=== PATIENT | female | born 1940 | race Caucasian/White ===

== ENCOUNTER 2017-05-07 16:19 | Inpatient (IN) | payer OTHER ==
--- NOTE | 2017-05-07 16:30 | PDOC ---
Rapid Medical Evaluation Time Seen by Provider: 05/07/17 16:27 Medical Evaluation: Allergies Allergy/AdvReac Type Severity Reaction Status Date / Time No Known Allergies Allergy Verified 03/14/15 20:53 05/07/17 16:29 c/o elevated blood sugar and elevate high blood pressure with visual changes when sitting sideways. Discharge Disposition - Diagnosis Hyperglycemia - Discharge Dispostion Disposition: HOME Condition at time of disposition: Fair - Referrals - Patient Instructions - Post Discharge Activity
[2017-05-07 16:52] LABS: URINE APPEARANCE CLEAR; URINE BILIRUBIN NEGATIVE (NEGATIVE); URINE BLOOD NEGATIVE (NEGATIVE); URINE COLOR STRAW; URINE GLUCOSE (UA) 3+ (NEGATIVE); URINE KETONE NEGATIVE (NEGATIVE); URINE LEUK ESTERASE NEGATIVE (NEGATIVE); URINE NITRITE NEGATIVE (NEGATIVE); URINE PROTEIN NEGATIVE (NEGATIVE)
[2017-05-07 16:56] LABS: BASO % 0.5 % (0-2.0); HEMOGLOBIN 11.5 GM/dL (10.7-15.3); LYMPH % 17.1 % (8-40); MCHC 30.1 g/dl (32.0-36.0); MEAN CELL VOLUME 66.5 fl (80-96); MONO % 13.7 % (3.8-10.2); NEUT % 67.7 % (42.8-82.8); RBC 5.72 M/mm3 (3.60-5.2); RDW 16.3 % (11.6-15.6); WHITE BLOOD COUNT 6.7 K/mm3 (4.0-10.0)
[2017-05-07 17:02] LABS: ADD RBC MORPHOLOGY YES
--- NOTE | 2017-05-07 17:03 | PDOC ---
Attending Attestation - Resident Resident Name: Lia Haney - HPI HPI: 05/07/17 19:40 Pt presents to the ED complaining of visual floaters and elevated FS at home. Denies other complaints. Admits to non compliance with DM medications. - Physicial Exam PE: 05/07/17 19:41 Agree with resident exam. Patient is well appearing and in no acute distress. Liungs are clear. Heart is regular rate and rhythm. - Medical Decision Making 05/07/17 19:42 Pt presents to the ED with severe hyperglycemia without DKA. Also has renal failure that appears to be acute. Will treat with IV insulin and IV hydration. given severe hyperglycemia and renal failure, will admit to medicine for glycemic control.
[2017-05-07 17:25] LABS: ALBUMIN 3.5 g/dl (3.4-5.0); ANION GAP 8 (8-16); BILIRUBIN,TOTAL 0.3 mg/dL (0.2-1.0); BLOOD UREA NITROGEN 33 mg/dL (7-18); CALCIUM 8.5 mg/dL (8.5-10.1); CHLORIDE 96 mmol/L (98-107); CO2 26 mmol/L (21-32); CREATININE 1.7 mg/dL (0.55-1.02); POTASSIUM 4.6 mmol/L (3.5-5.1); SGOT/AST 25 U/L (15-37); SODIUM 130 mmol/L (136-145); TOT PROT 7.4 g/dl (6.4-8.2)
--- NOTE | 2017-05-07 17:31 | PDOC ---
History of Present Illness - General Chief Complaint: Difficulty with Vision Stated Complaint: BLOOD PRESSURE Time Seen by Provider: 05/07/17 16:27 - History of Present Illness Initial Comments: 05/07/17 18:30 76 y.o. female with a PMH of IDDM, HTN who presents with a three day h/o elevated BS (400's-600's). Patient notes a h/o non-adherence to her insulin medication regimen and denies any associated nausea/vomiting, abdominal pain. Patient does c/o R sided visual flashing lights without any blurry vision, eye pain, floaters or increased lacrimation. Patient denies any fevers/chills, chest pain, shortness of breath, recent travel or sick contacts. Past History - Past Medical History Allergies/Adverse Reactions: Allergies Allergy/AdvReac Type Severity Reaction Status Date / Time No Known Allergies Allergy Verified 05/07/17 16:33 Home Medications: Ambulatory Orders Alendronate Na [Fosamax (Weekly)] 70 mg PO Q7D 07/03/14 Amlodipine Besylate/Benazepril [Lotrel 10-20 mg Capsule] 1 each PO DAILY Clopidogrel Bisulfate [Clopidogrel] 75 mg PO DAILY 07/03/14 Gabapentin [Neurontin] 600 mg PO BID 07/03/14 Glipizide 10 mg PO BID 07/03/14 Insulin Glargine,Hum.rec.anlog [Lantus Solostar PEN -] 30 units SQ HS 07/03/14 Nitroglycerin Patch [Nitro-Dur Patch -] 0.1 mg TD DAILY 07/03/14 Pioglitazone HCl 45 mg PO DAILY 07/03/14 Rosuvastatin Calcium [Crestor] 20 mg PO DAILY 07/03/14 Sitagliptin Phosphate [Januvia] 100 mg PO DAILY 07/03/14 metFORMIN HCL [Glucophage -] 500 mg PO BID 07/03/14 Insulin (Novolog) [Novolog Flexpen -] See Protocol SQ ACHS #1 pen 07/10/14 Furosemide [Lasix -] 20 mg PO DAILY 03/14/15 Metoprolol Succinate [Toprol Xl] 50 mg PO DAILY 03/14/15 Omeprazole [Prilosec (RX)] 40 mg PO DAILY 03/14/15 Cardiac Disorders: Yes (CAD, Stents x3) COPD: No Diabetes: Yes HTN: Yes Hypercholesterolemia: Yes - Immunization History Immunization Up to Date: Yes - Suicide/Smoking/Psychosocial Hx Smoking History: Never smoked Have you smoked in the past 12 months: No Information on smoking cessation initiated: No Hx Alcohol Use: No Drug/Substance Use Hx: No Substance Use Type: None Review of Systems - Review of Systems Constitutional: No: Chills, Fever HEENTM: Yes: Other (flashing lights). No: Eye Pain, Blurred Vision Respiratory: No: Shortness of Breath Cardiac (ROS): No: Chest Pain ABD/GI: No: Constipated, Diarrhea : No: Burning, Dysuria Neurological: No: Headache, Numbness Psychiatric: No: Anxiety, Depression All Other Systems: Reviewed and Negative *Physical Exam - Vital Signs Last Vital Signs Temp Pulse Resp BP Pulse Ox 97.8 F 67 18 185/77 100 05/07/17 16:30 05/07/17 16:30 05/07/17 16:30 05/07/17 16:30 05/07/17 16:30 - Physical Exam General Appearance: Yes: Nourished, Appropriately Dressed HEENT: positive: EOMI, NUVIA, Other (Visual acuits 20/25 B/L) Neck: positive: Trachea midline, Supple Respiratory/Chest: positive: Lungs Clear Cardiovascular: positive: S1, S2 Gastrointestinal/Abdominal: positive: Soft. negative: Tenderness, Hernia, Mass Extremity: positive: Normal Capillary Refill, Normal Inspection Integumentary: positive: Normal Color, Dry, Warm Neurologic: positive: Fully Oriented, Alert ED Treatment Course - LABORATORY CBC & Chemistry Diagram: 05/07/17 16:36 05/07/17 16:36 - ADDITIONAL ORDERS Additional order review: Laboratory Results 05/07/17 16:43 Urine Color Straw Urine Appearance Clear Urine pH 6.0 D Ur Specific [place] 1.022 Urine Protein Negative Urine Glucose (UA) 3+ H Urine Ketones Negative Urine Blood Negative Urine Nitrite Negative Urine Bilirubin Negative Urine Urobilinogen 2.0 H Ur Leukocyte Esterase Negative 05/07/17 16:36 RBC 5.72 H MCV 66.5 L MCHC 30.1 L RDW 16.3 H Neutrophils % 67.7 Lymphocytes % 17.1 Monocytes % 13.7 H Eosinophils % 1.0 Basophils % 0.5 Medical Decision Making - Medical Decision Making 05/07/17 21:35 76 y.o. female who presents with hyperglycemia. BS 700's @ presentation. K+ normal. Will administer IVNS + 10 units insulin with repeat fingerstick. Case d/w Dr. Garcia - agrees with inpatient admission as well as non-emergent opthamology consult (20/25 visual acuity B/L). Patient and patient's family @ bedside counseled on plan of care as well as importance of adherence to insulin medication regimen. Patient resting comfortably. Will continue to monitor while in ED. Patient signed out Dr. Blackburn (Resident) and Dr. Kennedy (Attending). *DC/Admit/Observation/Transfer Diagnosis at time of Disposition: Hyperglycemia - Discharge Dispostion Condition at time of disposition: Fair Admit: Yes - Referrals - Patient Instructions - Post Discharge Activity
[2017-05-07 17:33] LABS: ALK PHOS 105 U/L (45-117); SGPT/ALT 16 U/L (12-78)
[2017-05-07 17:48] LABS: GLUCOSE,RANDOM 701 mg/dL (74-106)
[2017-05-07 17:57] LABS: VENOUS PC02 44.4 mmHg (38-52); VENOUS PH 7.38 (7.32-7.42); VENOUS PO2 39.5 mmHg (28-48)
[2017-05-07] MEDS ORDERED: SODIUM CHLORIDE 0.9% 500 ML INFUS.BAG IV ONE (18:17)
[2017-05-07] MEDS ORDERED: INSULIN REGULAR HUMAN 100 UNITS/ML *VIAL IVPUSH ONE (18:44)
[2017-05-07] MEDS ORDERED: INSULIN REGULAR 100 UNITS in SODIUM CHLORIDE 99 ML IVPB SCH (18:45)
[2017-05-07] MEDS ORDERED: INSULIN REGULAR HUMAN 100 UNITS/ML *VIAL ONE (18:55)
--- NOTE | 2017-05-07 20:37 | HP ---
Admitting History and Physical - Primary Care Physician PCP: Jamia Garcia - Admission History of Present Illness: Pt presents to the ED with severe hyperglycemia without DKA. Also has renal failure that appears to be acute. Will treat with IV insulin and IV hydration. given severe hyperglycemia and renal failure, will admit to medicine for glycemic control. - Past Medical History Cardiovascular: Yes: CAD, HTN Musculoskeletal: Yes: Osteoarthritis Endocrine: Yes: Diabetes Mellitus - Past Surgical History Past Surgical History: Yes: Stent (Cardiac Stents x3) - Smoking History Smoking history: Never smoked Have you smoked in the past 12 months: No - Alcohol/Substance Use Hx Alcohol Use: No History of Substance Use: reports: None - Social History ADL: Independent History of Recent Travel: No Home Medications - Allergies Allergies/Adverse Reactions: Allergies Allergy/AdvReac Type Severity Reaction Status Date / Time No Known Allergies Allergy Verified 05/07/17 16:33 - Home Medications Home Medications: Ambulatory Orders Alendronate Na [Fosamax (Weekly)] 70 mg PO Q7D 07/03/14 Clopidogrel Bisulfate [Clopidogrel] 75 mg PO DAILY 07/03/14 Gabapentin [Neurontin] 600 mg PO BID 07/03/14 Glipizide 10 mg PO BID 07/03/14 Nitroglycerin Patch [Nitro-Dur Patch -] 0.1 mg TD DAILY 07/03/14 Rosuvastatin Calcium [Crestor] 20 mg PO DAILY 07/03/14 Insulin (Novolog) [Novolog Flexpen -] See Protocol SQ ACHS #1 pen 07/10/14 Furosemide [Lasix -] 20 mg PO DAILY 03/14/15 Metoprolol Succinate [Toprol Xl] 50 mg PO DAILY 03/14/15 Omeprazole [Prilosec (RX)] 40 mg PO DAILY 03/14/15 Amlodipine Besylate [Norvasc -] 10 mg PO DAILY tablet 05/10/17 Insulin (Levemir) [Levemir Vial] 18 units SQ HS ml 05/10/17 Insulin Sliding Scale [Novolog Vial Sliding Scale -] 1 vial SQ TIDAC units 03/29 Lisinopril [Prinivil] 20 mg PO DAILY tablet 05/10/17 Metoprolol Succinate [Toprol XL -] 50 mg PO DAILY tab.sr.24h 05/10/17 Physical Examination Vital Signs: Vital Signs Temperature 97.8 F 05/07/17 16:30 Pulse Rate 70 05/07/17 19:01 Respiratory Rate 13 05/07/17 19:01 Blood Pressure 140/87 05/07/17 19:01 O2 Sat by Pulse Oximetry (%) 98 05/07/17 19:01 Constitutional: Yes: No Distress HENT: Yes: Atraumatic Neck: Yes: Supple Cardiovascular: Yes: Regular Rate and Rhythm Respiratory: Yes: CTA Bilaterally Gastrointestinal: Yes: Normal Bowel Sounds Extremities: Yes: WNL Edema: No Peripheral Pulses WNL: Yes Neurological: Yes: Alert Labs: CBC, BMP 05/07/17 16:36 05/07/17 16:36 Problem List - Problems (1) Coronary artery disease Assessment/Plan: on meds stable Code(s): I25.10 - ATHSCL HEART DISEASE OF [place] CORONARY ARTERY W/O ANG PCTRS (2) Diabetes mellitus Assessment/Plan: insulin and bgms hold po meds as elevated cr Code(s): E11.9 - TYPE 2 DIABETES MELLITUS WITHOUT COMPLICATIONS (3) Hyperlipidemia Assessment/Plan: on meds stable Code(s): E78.5 - HYPERLIPIDEMIA, UNSPECIFIED (4) Hypertension Assessment/Plan: on meds stable Code(s): I10 - ESSENTIAL (PRIMARY) HYPERTENSION (5) ARF (acute renal failure) Assessment/Plan: hyperglycemia dehydration will start ivf Code(s): N17.9 - ACUTE KIDNEY FAILURE, UNSPECIFIED Assessment/Plan Laboratory Tests 05/07/17 05/07/17 05/07/17 16:36 16:36 16:43 WBC 6.7 RBC 5.72 H Hgb 11.5 Hct 38.0 MCV 66.5 L MCH 20.0 L MCHC 30.1 L RDW 16.3 H Neutrophils % 67.7 Lymphocytes % 17.1 Monocytes % 13.7 H Eosinophils % 1.0 Basophils % 0.5 VBG pH POC VBG pCO2 POC VBG pO2 Mixed VBG HCO3 Sodium 130 L Potassium 4.6 Chloride 96 L Carbon Dioxide 26 Anion Gap 8 BUN 33 H Creatinine 1.7 H Creat Clearance w eGFR 29.07 Random Glucose 701 H* Calcium 8.5 Total Bilirubin 0.3 D AST 25 ALT 16 Alkaline Phosphatase 105 Total Protein 7.4 Albumin 3.5 Urine Color Straw Urine Appearance Clear Urine pH 6.0 D Ur Specific [place] 1.022 Urine Protein Negative Urine Glucose (UA) 3+ H Urine Ketones Negative Urine Blood Negative Urine Nitrite Negative Urine Bilirubin Negative Urine Urobilinogen 2.0 H Ur Leukocyte Esterase Negative 05/07/17 17:43 WBC RBC Hgb Hct MCV MCH MCHC RDW Neutrophils % Lymphocytes % Monocytes % Eosinophils % Basophils % VBG pH 7.38 POC VBG pCO2 44.4 POC VBG pO2 39.5 Mixed VBG HCO3 25.8 H Sodium Potassium Chloride Carbon Dioxide Anion Gap BUN Creatinine Creat Clearance w eGFR Random Glucose Calcium Total Bilirubin AST ALT Alkaline Phosphatase Total Protein Albumin Urine Color Urine Appearance Urine pH Ur Specific [place] Urine Protein Urine Glucose (UA) Urine Ketones Urine Blood Urine Nitrite Urine Bilirubin Urine Urobilinogen Ur Leukocyte Esterase Active Medications Generic Name Dose Route Start Last Admin Trade Name Freq PRN Reason Stop Dose Admin Acetaminophen 650 mg 05/07/17 20:45 05/07/17 21:00 Tylenol - PO 650 mg Q6H PRN Administration FEVER Amlodipine Besylate 10 mg 05/08/17 18:15 05/10/17 09:02 Norvasc - PO 10 mg DAILY [facility] Administration Clopidogrel Bisulfate 75 mg 05/08/17 18:00 05/10/17 09:02 Plavix - PO 75 mg DAILY [facility] Administration Insulin Aspart 1 vial 05/08/17 22:00 05/09/17 21:45 Novolog Vial Sliding Scale - SQ Not Given HS [facility] Protocol Insulin Aspart 1 vial 05/09/17 09:41 05/10/17 12:22 Novolog Vial Sliding Scale - SQ 2 units TIDAC [facility] Administration Protocol Insulin Detemir 18 units 05/10/17 22:00 Levemir Vial SQ HS [facility] Lisinopril 20 mg 05/08/17 18:15 05/10/17 09:03 Prinivil PO 20 mg DAILY [facility] Administration Metoprolol Succinate 50 mg 05/08/17 18:00 05/10/17 09:03 Toprol Xl - PO 50 mg DAILY [facility] Administration Pantoprazole Sodium 40 mg 05/08/17 18:00 05/10/17 09:03 Protonix - PO 40 mg DAILY [facility] Administration Rosuvastatin Calcium 20 mg 05/08/17 22:00 05/09/17 21:45 Crestor - PO 20 mg 2200 [facility] Administration
[2017-05-07] MEDS ORDERED: ACETAMINOPHEN 325 MG TABLET (FP) PO PRN (20:45)
[2017-05-07 20:56] LABS: MEAN PLT VOLUME 10.5 fl (7.5-11.1); PLATELET COUNT 151 K/MM3 (134-434)
[2017-05-07] MEDS: SODIUM CHLORIDE 1,000 ML IV SCH (20:57)
[2017-05-07 21:00] LABS: ANISOCYTOSIS 1+; OVALOCYTE 1+; PLATELET ESTIMATE ADEQUATE
[2017-05-07] MEDS: INSULIN SLIDING SCALE (NOVOLOG) 1 VIAL SQ SCH (21:53)
[2017-05-07] MEDS ORDERED: PT OWN MED DRAWER 7, Y5N ONE (22:17)
[2017-05-08 00:26] VITALS: BMI 34.2
[2017-05-08] MEDS ORDERED: PT OWN MED DRAWER 7, Y5N ONE (01:00)
[2017-05-08] MEDS: INSULIN SLIDING SCALE (NOVOLOG) 1 VIAL SQ SCH ×3 (06:44→22:36)
[2017-05-08 08:49] LABS: BASO % 1.2 % (0-2.0); EOS % 2.4 % (0-4.5); HEMATOCRIT 37.3 % (32.4-45.2); HEMOGLOBIN 11.1 GM/dL (10.7-15.3); LYMPH % 29.8 % (8-40); MCHC 29.7 g/dl (32.0-36.0); MEAN CELL VOLUME 66.4 fl (80-96); MONO % 13.1 % (3.8-10.2); NEUT % 53.5 % (42.8-82.8); PLATELET COUNT 167 K/MM3 (134-434); RBC 5.62 M/mm3 (3.60-5.2); RDW 15.7 % (11.6-15.6); WHITE BLOOD COUNT 6.3 K/mm3 (4.0-10.0)
[2017-05-08 08:53] LABS: ALBUMIN 3.2 g/dl (3.4-5.0); ALK PHOS 78 U/L (45-117); ANION GAP 9 (8-16); BILIRUBIN,TOTAL 0.4 mg/dL (0.2-1.0); BLOOD UREA NITROGEN 25 mg/dL (7-18); CALCIUM 8.2 mg/dL (8.5-10.1); CHLORIDE 105 mmol/L (98-107); CO2 26 mmol/L (21-32); CREATININE 1.1 mg/dL (0.55-1.02); GLUCOSE,RANDOM 189 mg/dL (74-106); POTASSIUM 4.3 mmol/L (3.5-5.1); SGOT/AST 28 U/L (15-37); SGPT/ALT 15 U/L (12-78); SODIUM 140 mmol/L (136-145); TOT PROT 6.6 g/dl (6.4-8.2)
[2017-05-08 08:54] LABS: MCH 19.7 pg (25.7-33.7)
[2017-05-08 09:52] LABS: PLATELET ESTIMATE ADEQUATE
[2017-05-08] MEDS: SODIUM CHLORIDE 1,000 ML IV SCH ×2 (10:02→22:17)
[2017-05-08] MEDS ORDERED: INSULIN (NOVOLOG) ASPART 100 UNITS/ML 10ML VIAL ONE (12:16)
--- NOTE | 2017-05-08 14:27 | CONSULT ---
Consult Consult Specialty:: Endocrinology Referred by:: Dr Garcia Reason for Consultation:: Hyperglycemia - History of Present Illness Chief Complaint: Hyperglycemia History of Present Illness: This is a 76 y.o. female with h/o DM for about 40 years, on Insulin for the same period, HTN who presents with a three day h/o hyperglycemia (400's-600's) because she stopped taking Lantus as she was not feelint well. Usually her blood sugars are in the 200s. Takes Lantus 50 at night and rapid acting Insulin 6 units BID with food. H/O hospitaliztion for hyperglycemia about 5 years ago for hyperglycemia. Patient does c/o R sided visual flashing lights without any blurry vision, eye pain, floaters or increased lacrimation. Currently no flashes of light. - History Source History Provided By: Patient, Medical Record Limitations to Obtaining History: Poor Historian - Past Medical History Cardio/Vascular: Yes: CAD, HTN Musculoskeletal: Yes: Osteoarthritis Endocrine: Yes: Diabetes Mellitus - Past Surgical History Past Surgical History: Yes: Stent (Cardiac Stents x3) - Alcohol/Substance Use Hx Alcohol Use: No History of Substance Use: reports: None - Smoking History Smoking history: Never smoked Have you smoked in the past 12 months: No - Social History ADL: Independent History of Recent Travel: No Home Medications - Allergies Allergies/Adverse Reactions: Allergies Allergy/AdvReac Type Severity Reaction Status Date / Time No Known Allergies Allergy Verified 05/07/17 16:33 - Home Medications Home Medications: Ambulatory Orders Alendronate Na [Fosamax (Weekly)] 70 mg PO Q7D 07/03/14 Amlodipine Besylate/Benazepril [Lotrel 10-20 mg Capsule] 1 each PO DAILY Clopidogrel Bisulfate [Clopidogrel] 75 mg PO DAILY 07/03/14 Gabapentin [Neurontin] 600 mg PO BID 07/03/14 Glipizide 10 mg PO BID 07/03/14 Insulin Glargine,Hum.rec.anlog [Lantus Solostar PEN -] 30 units SQ HS 07/03/14 Nitroglycerin Patch [Nitro-Dur Patch -] 0.1 mg TD DAILY 07/03/14 Pioglitazone HCl 45 mg PO DAILY 07/03/14 Rosuvastatin Calcium [Crestor] 20 mg PO DAILY 07/03/14 Sitagliptin Phosphate [Januvia] 100 mg PO DAILY 07/03/14 metFORMIN HCL [Glucophage -] 500 mg PO BID 07/03/14 Insulin (Novolog) [Novolog Flexpen -] See Protocol SQ ACHS #1 pen 07/10/14 Furosemide [Lasix -] 20 mg PO DAILY 03/14/15 Metoprolol Succinate [Toprol Xl] 50 mg PO DAILY 03/14/15 Omeprazole [Prilosec (RX)] 40 mg PO DAILY 03/14/15 Family Disease History - Family Disease History Family Disease History: Diabetes: Mother Review of Systems - Review of Systems Constitutional: reports: No Symptoms Eyes: reports: No Symptoms, Other HENT: reports: No Symptoms Neck: reports: No Symptoms Cardiovascular: reports: No Symptoms Respiratory: reports: No Symptoms Gastrointestinal: reports: No Symptoms Genitourinary: reports: No Symptoms Musculoskeletal: reports: No Symptoms Neurological: reports: No Symptoms Physical Exam Vital Signs: Vital Signs Temperature 98.1 F 05/08/17 07:56 Pulse Rate 64 05/08/17 07:56 Respiratory Rate 20 05/08/17 07:56 Blood Pressure 142/82 05/08/17 07:56 O2 Sat by Pulse Oximetry (%) 98 05/08/17 09:00 Constitutional: Yes: No Distress, Calm Eyes: Yes: Conjunctiva Clear, EOM Intact HENT: Yes: Atraumatic, Normocephalic Neck: Yes: Supple, Trachea Midline Cardiovascular: Yes: Regular Rate and Rhythm Respiratory: Yes: Regular, CTA Bilaterally Gastrointestinal: Yes: Normal Bowel Sounds, Soft Musculoskeletal: Yes: WNL Extremities: Yes: WNL Edema: No Neurological: Yes: Alert, Oriented Labs: CBC, BMP 05/08/17 06:30 05/08/17 06:30 Assessment/Plan AP: T2DM: uncontrolled Diet exercise discussed No sugary drinks, juice, sodas No concentrated sweets Nutrition consult Start Levenir 15 units daily at HS Novolog SS coverage Flashes of light Rt eye: Consider Ophthalmology consult.
[2017-05-08] MEDS ORDERED: INSULIN SLIDING SCALE (NOVOLOG) 1 VIAL SQ SCH ×2 (16:30→18:33)
--- NOTE | 2017-05-08 17:59 | PN ---
Progress Note, Physician History of Present Illness: feeling better - Current Medication List Current Medications: Active Medications Acetaminophen (Tylenol -) 650 mg PO Q6H PRN PRN Reason: FEVER Last Admin: 05/07/17 21:00 Dose: 650 mg Clopidogrel Bisulfate (Plavix -) 75 mg PO DAILY [facility] Sodium Chloride (Normal Saline -) 1,000 mls @ 75 mls/hr IV ASDIR [facility] Last Admin: 05/08/17 10:02 Dose: 75 mls/hr Insulin Aspart (Novolog Vial Sliding Scale -) 1 vial SQ HS [facility] PRN Reason: Protocol Insulin Aspart (Novolog Vial Sliding Scale -) 1 vial SQ TIDAC [facility] PRN Reason: Protocol Insulin Detemir (Levemir Vial) 15 units SQ HS [facility] Metoprolol Succinate (Toprol Xl -) 50 mg PO DAILY [facility] Non-Formulary Medication (Amlodipine Besylate/Benazepril [Lotrel 10-20 Mg Capsule]) 1 each PO DAILY [facility] Non-Formulary Medication (Omeprazole [Prilosec (Rx)]) 40 mg PO DAILY [facility] Rosuvastatin Calcium (Crestor -) 20 mg PO 2200 [facility] - Objective Vital Signs: Vital Signs Temperature 98.3 F 05/08/17 15:34 Pulse Rate 69 05/08/17 15:34 Respiratory Rate 18 05/08/17 15:34 Blood Pressure 157/69 05/08/17 15:34 O2 Sat by Pulse Oximetry (%) 98 05/08/17 09:00 Constitutional: Yes: No Distress HENT: Yes: Atraumatic Neck: Yes: Supple Cardiovascular: Yes: Regular Rate and Rhythm Respiratory: Yes: CTA Bilaterally Gastrointestinal: Yes: Normal Bowel Sounds Extremities: Yes: WNL Neurological: Yes: Alert, Oriented Labs: CBC, BMP 05/08/17 06:30 05/08/17 06:30 Problem List - Problems (1) Coronary artery disease Assessment/Plan: on meds stable Code(s): I25.10 - ATHSCL HEART DISEASE OF [place] CORONARY ARTERY W/O ANG PCTRS (2) Diabetes mellitus Assessment/Plan: insulin and bgms hold po meds as elevated cr ivf Code(s): E11.9 - TYPE 2 DIABETES MELLITUS WITHOUT COMPLICATIONS (3) Hyperlipidemia Assessment/Plan: on meds stable Code(s): E78.5 - HYPERLIPIDEMIA, UNSPECIFIED (4) Hypertension Assessment/Plan: on meds stable Code(s): I10 - ESSENTIAL (PRIMARY) HYPERTENSION (5) ARF (acute renal failure) Assessment/Plan: on ivf improving Code(s): N17.9 - ACUTE KIDNEY FAILURE, UNSPECIFIED
[2017-05-08] MEDS ORDERED: PATIENT'S OWN MEDICATION (NON-FORMULARY) (Amlodipine Besylate/Benazepril [Lotrel 10-20 Mg PO SCH (18:00)
[2017-05-08] MEDS: LISINOPRIL 20 MG TABLET (FP) PO SCH (18:12)
[2017-05-08] MEDS: amLODIPine BESYLATE 10 MG TABLET (FP) PO SCH (18:12)
[2017-05-08] MEDS: CLOPIDOGREL BISULFATE 75 MG TABLET (FP) PO SCH (18:12)
[2017-05-08] MEDS: PANTOPRAZOLE 40 MG TABLET (FP) PO SCH (18:13)
[2017-05-08] MEDS: ROSUVASTATIN CA 10 MG TABLET (FP) PO SCH (22:35)
[2017-05-08] MEDS: INSULIN DETEMIR 100 UNITS/ML MDV SQ SCH (22:35)
[2017-05-08] MEDS ORDERED: INSULIN (NOVOLOG) ASPART 100 UNITS/ML 10ML VIAL SQ ONE (23:15)
[2017-05-09] MEDS ORDERED: INSULIN (NOVOLOG) ASPART 100 UNITS/ML 10ML VIAL SQ PRN (00:30)
[2017-05-09] MEDS ORDERED: PT OWN MED DRAWER 7, Y5N ONE (09:08)
[2017-05-09] MEDS: LISINOPRIL 20 MG TABLET (FP) PO SCH (09:21)
[2017-05-09] MEDS: CLOPIDOGREL BISULFATE 75 MG TABLET (FP) PO SCH (09:21)
[2017-05-09] MEDS: amLODIPine BESYLATE 10 MG TABLET (FP) PO SCH (09:21)
[2017-05-09] MEDS: PANTOPRAZOLE 40 MG TABLET (FP) PO SCH (09:22)
--- NOTE | 2017-05-09 09:41 | PN ---
Progress Note (short form) - Note Progress Note: Flucttating blood sugar Denies eating anything after dinner Vital Signs Period Temp Pulse Resp BP Sys/Spence Pulse Ox Last 24 Hr 98.1 F-98.8 F 59-69 18-20 146-157/59-84 98 PE: AOx3 Neck:Supple, No JVD HEENT: [place],, EOMI Lungs: CTA CVS: S1S2 Abd: Benign EXt: No edema Neuro: No focal deficit CMP Sodium 140 mmol/L (136-145) 05/08/17 06:30 Potassium 4.3 mmol/L (3.5-5.1) 05/08/17 06:30 Chloride 105 mmol/L (98-107) 05/08/17 06:30 Carbon Dioxide 26 mmol/L (21-32) 05/08/17 06:30 Anion Gap 9 (8-16) 05/08/17 06:30 BUN 25 mg/dL (7-18) H 05/08/17 06:30 Creatinine 1.1 mg/dL (0.55-1.02) H 05/08/17 06:30 Creat Clearance w eGFR 48.04 (>60) 05/08/17 06:30 POC Glucometer 89 UNITS (80-120) 05/09/17 06:49 Random Glucose 492 mg/dL (74-106) H* 05/08/17 23:30 Hemoglobin A1c % 15.4 % (4.8-6.0) H 05/08/17 06:30 Calcium 8.2 mg/dL (8.5-10.1) L 05/08/17 06:30 Total Bilirubin 0.4 mg/dL (0.2-1.0) D 05/08/17 06:30 AST 28 U/L (15-37) 05/08/17 06:30 ALT 15 U/L (12-78) 05/08/17 06:30 Alkaline Phosphatase 78 U/L (45-117) 05/08/17 06:30 Total Protein 6.6 g/dl (6.4-8.2) 05/08/17 06:30 Albumin 3.2 g/dl (3.4-5.0) L 05/08/17 06:30 Current Medications Generic Name Dose Route Start Last Admin Trade Name Freq PRN Reason Stop Dose Admin Acetaminophen 650 mg 05/07/17 20:45 05/07/17 21:00 Tylenol - PO 650 mg Q6H PRN Administration FEVER Amlodipine Besylate 10 mg 05/08/17 18:15 05/09/17 09:21 Norvasc - PO 10 mg DAILY [facility] Administration Clopidogrel Bisulfate 75 mg 05/08/17 18:00 05/09/17 09:21 Plavix - PO 75 mg DAILY [facility] Administration Sodium Chloride 1,000 mls @ 75 mls/hr 05/07/17 21:00 05/08/17 22:17 Normal Saline - IV Not Given ASDIR [facility] Insulin Aspart 1 vial 05/08/17 22:00 05/08/17 22:36 Novolog Vial Sliding Scale - SQ 8 unit HS [facility] Administration Protocol Insulin Aspart 1 vial 05/08/17 18:33 05/09/17 06:50 Novolog Vial Sliding Scale - SQ Not Given TIDAC [facility] Protocol Insulin Detemir 15 units 05/08/17 22:00 05/08/17 22:35 Levemir Vial SQ 15 unit HS [facility] Administration Lisinopril 20 mg 05/08/17 18:15 05/09/17 09:21 Prinivil PO 20 mg DAILY [facility] Administration Metoprolol Succinate 50 mg 05/08/17 18:00 05/09/17 09:22 Toprol Xl - PO 50 mg DAILY [facility] Administration Pantoprazole Sodium 40 mg 05/08/17 18:00 05/09/17 09:22 Protonix - PO 40 mg DAILY [facility] Administration Rosuvastatin Calcium 20 mg 05/08/17 22:00 05/08/17 22:35 Crestor - PO 20 mg 2200 [facility] Administration AP: T2DM: uncontrolled Diet exercise discussed No sugary drinks, juice, sodas No concentrated sweets Nutrition consult Levenir 15 units daily at HS Increase Novolog SS coverage Flashes of light Rt eye: Consider Ophthalmology consult.
[2017-05-09] MEDS: INSULIN SLIDING SCALE (NOVOLOG) 1 VIAL SQ SCH ×3 (11:36→21:45)
[2017-05-09] MEDS: SODIUM CHLORIDE 1,000 ML IV SCH (12:40)
--- NOTE | 2017-05-09 16:57 | PN ---
Progress Note, Physician - Current Medication List Current Medications: Active Medications Acetaminophen (Tylenol -) 650 mg PO Q6H PRN PRN Reason: FEVER Last Admin: 05/07/17 21:00 Dose: 650 mg Amlodipine Besylate (Norvasc -) 10 mg PO DAILY [facility] Last Admin: 05/09/17 09:21 Dose: 10 mg Clopidogrel Bisulfate (Plavix -) 75 mg PO DAILY [facility] Last Admin: 05/09/17 09:21 Dose: 75 mg Sodium Chloride (Normal Saline -) 1,000 mls @ 75 mls/hr IV ASDIR [facility] Last Admin: 05/09/17 12:40 Dose: 75 mls/hr Insulin Aspart (Novolog Vial Sliding Scale -) 1 vial SQ HS [facility] PRN Reason: Protocol Last Admin: 05/08/17 22:36 Dose: 8 unit Insulin Aspart (Novolog Vial Sliding Scale -) 1 vial SQ TIDAC [facility] PRN Reason: Protocol Last Admin: 05/09/17 16:39 Dose: 10 units Insulin Detemir (Levemir Vial) 15 units SQ HS [facility] Last Admin: 05/08/17 22:35 Dose: 15 unit Lisinopril (Prinivil) 20 mg PO DAILY [facility] Last Admin: 05/09/17 09:21 Dose: 20 mg Metoprolol Succinate (Toprol Xl -) 50 mg PO DAILY [facility] Last Admin: 05/09/17 09:22 Dose: 50 mg Pantoprazole Sodium (Protonix -) 40 mg PO DAILY [facility] Last Admin: 05/09/17 09:22 Dose: 40 mg Rosuvastatin Calcium (Crestor -) 20 mg PO 2200 [facility] Last Admin: 05/08/17 22:35 Dose: 20 mg - Objective Vital Signs: Vital Signs Temperature 98.1 F 05/09/17 14:33 Pulse Rate 97 H 05/09/17 14:33 Respiratory Rate 18 05/09/17 14:33 Blood Pressure 135/66 05/09/17 14:33 O2 Sat by Pulse Oximetry (%) 98 05/08/17 21:00 Constitutional: Yes: No Distress HENT: Yes: Atraumatic Neck: Yes: Supple Cardiovascular: Yes: Regular Rate and Rhythm Respiratory: Yes: CTA Bilaterally Gastrointestinal: Yes: Normal Bowel Sounds Extremities: Yes: WNL Neurological: Yes: Alert, Oriented Labs: CBC, BMP 05/08/17 06:30 05/08/17 23:30 Problem List - Problems (1) Coronary artery disease Assessment/Plan: on meds stable Code(s): I25.10 - ATHSCL HEART DISEASE OF [place] CORONARY ARTERY W/O ANG PCTRS (2) Diabetes mellitus Assessment/Plan: insulin and bgms hold po meds as elevated cr ivf Code(s): E11.9 - TYPE 2 DIABETES MELLITUS WITHOUT COMPLICATIONS (3) Hyperlipidemia Assessment/Plan: on meds stable Code(s): E78.5 - HYPERLIPIDEMIA, UNSPECIFIED (4) Hypertension Assessment/Plan: on meds stable Code(s): I10 - ESSENTIAL (PRIMARY) HYPERTENSION (5) ARF (acute renal failure) Code(s): N17.9 - ACUTE KIDNEY FAILURE, UNSPECIFIED
[2017-05-09] MEDS ORDERED: INSULIN (NOVOLOG) ASPART 100 UNITS/ML 10ML VIAL ONE (20:15)
[2017-05-09] MEDS: ROSUVASTATIN CA 10 MG TABLET (FP) PO SCH (21:45)
[2017-05-09] MEDS: INSULIN DETEMIR 100 UNITS/ML MDV SQ SCH (21:50)
[2017-05-10] MEDS: INSULIN SLIDING SCALE (NOVOLOG) 1 VIAL SQ SCH ×3 (06:35→17:40)
[2017-05-10] MEDS ORDERED: PT OWN MED DRAWER 7, Y5N ONE (09:00)
[2017-05-10] MEDS: amLODIPine BESYLATE 10 MG TABLET (FP) PO SCH (09:02)
[2017-05-10] MEDS: CLOPIDOGREL BISULFATE 75 MG TABLET (FP) PO SCH (09:02)
[2017-05-10] MEDS: PANTOPRAZOLE 40 MG TABLET (FP) PO SCH (09:03)
[2017-05-10] MEDS: LISINOPRIL 20 MG TABLET (FP) PO SCH (09:03)
--- NOTE | 2017-05-10 09:18 | PN ---
Progress Note (short form) - Note Progress Note: Improving blood sugar Denies any complaints Vital Signs Period Temp Pulse Resp BP Sys/Spence Pulse Ox Last 24 Hr 98.1 F-98.3 F 58-97 18-20 135-163/61-76 98 PE: AOx3 Neck:Supple, No JVD HEENT: PEERL,, EOMI Lungs: CTA CVS: S1S2 Abd: Benign EXt: No edema Neuro: No focal deficit CMP Sodium 140 mmol/L (136-145) 05/08/17 06:30 Potassium 4.3 mmol/L (3.5-5.1) 05/08/17 06:30 Chloride 105 mmol/L (98-107) 05/08/17 06:30 Carbon Dioxide 26 mmol/L (21-32) 05/08/17 06:30 Anion Gap 9 (8-16) 05/08/17 06:30 BUN 25 mg/dL (7-18) H 05/08/17 06:30 Creatinine 1.1 mg/dL (0.55-1.02) H 05/08/17 06:30 Creat Clearance w eGFR 48.04 (>60) 05/08/17 06:30 POC Glucometer 247 UNITS (80-120) 05/10/17 06:34 Random Glucose 492 mg/dL (74-106) H* 05/08/17 23:30 Hemoglobin A1c % 15.4 % (4.8-6.0) H 05/08/17 06:30 Calcium 8.2 mg/dL (8.5-10.1) L 05/08/17 06:30 Total Bilirubin 0.4 mg/dL (0.2-1.0) D 05/08/17 06:30 AST 28 U/L (15-37) 05/08/17 06:30 ALT 15 U/L (12-78) 05/08/17 06:30 Alkaline Phosphatase 78 U/L (45-117) 05/08/17 06:30 Total Protein 6.6 g/dl (6.4-8.2) 05/08/17 06:30 Albumin 3.2 g/dl (3.4-5.0) L 05/08/17 06:30 Current Medications Generic Name Dose Route Start Last Admin Trade Name Freq PRN Reason Stop Dose Admin Acetaminophen 650 mg 05/07/17 20:45 05/07/17 21:00 Tylenol - PO 650 mg Q6H PRN Administration FEVER Amlodipine Besylate 10 mg 05/08/17 18:15 05/10/17 09:02 Norvasc - PO 10 mg DAILY ALEXIA Administration Clopidogrel Bisulfate 75 mg 05/08/17 18:00 05/10/17 09:02 Plavix - PO 75 mg DAILY ALEXIA Administration Insulin Aspart 1 vial 05/08/17 22:00 05/09/17 21:45 Novolog Vial Sliding Scale - SQ Not Given [facility] Protocol Insulin Aspart 1 vial 05/09/17 09:41 05/10/17 06:35 Novolog Vial Sliding Scale - SQ 10 units TIDAC [facility] Administration Protocol Insulin Detemir 15 units 05/08/17 22:00 05/09/17 21:50 Levemir Vial SQ Not Given [facility] Lisinopril 20 mg 05/08/17 18:15 05/10/17 09:03 Prinivil PO 20 mg DAILY ALEXIA Administration Metoprolol Succinate 50 mg 05/08/17 18:00 05/10/17 09:03 Toprol Xl - PO 50 mg DAILY ALEXIA Administration Pantoprazole Sodium 40 mg 05/08/17 18:00 05/10/17 09:03 Protonix - PO 40 mg DAILY ALEXIA Administration Rosuvastatin Calcium 20 mg 05/08/17 22:00 05/09/17 21:45 Crestor - PO 20 mg 2200 ALEXIA Administration AP: T2DM: uncontrolled, A1c 15.4 Diet exercise discussed No sugary drinks, juice, sodas No concentrated sweets Nutrition consult Increase Levenir 18 units daily at HS Novolog SS coverage Flashes of light Rt eye: Consider Ophthalmology consult.
[2017-05-10] MEDS ORDERED: INSULIN (NOVOLOG) ASPART 100 UNITS/ML 10ML VIAL ONE (12:16)
--- NOTE | 2017-05-10 16:32 | DS ---
Physical Examination Vital Signs: Vital Signs Temperature 98.5 F 05/10/17 15:37 Pulse Rate 64 05/10/17 15:37 Respiratory Rate 20 05/10/17 15:37 Blood Pressure 140/62 05/10/17 15:37 O2 Sat by Pulse Oximetry (%) 98 05/09/17 21:00 Constitutional: Yes: No Distress HENT: Yes: Atraumatic Neck: Yes: Supple Cardiovascular: Yes: Regular Rate and Rhythm Respiratory: Yes: CTA Bilaterally Gastrointestinal: Yes: Normal Bowel Sounds Extremities: Yes: WNL Edema: Yes Peripheral Pulses WNL: Yes Neurological: Yes: Alert, Oriented Labs: CBC, BMP 05/08/17 06:30 05/08/17 23:30 Discharge Summary Reason For Visit: HYPERGLYCEMIA Current Active Problems ARF (acute renal failure) (Acute) Hyperglycemia (Acute) Condition: Fair - Instructions Referrals: Sd Dorantes MD [Primary Care Provider] - - Home Medications Comprehensive Discharge Medication List: Ambulatory Orders Alendronate Na [Fosamax (Weekly)] 70 mg PO Q7D 07/03/14 Clopidogrel Bisulfate [Clopidogrel] 75 mg PO DAILY 07/03/14 Gabapentin [Neurontin] 600 mg PO BID 07/03/14 Glipizide 10 mg PO BID 07/03/14 Nitroglycerin Patch [Nitro-Dur Patch -] 0.1 mg TD DAILY 07/03/14 Rosuvastatin Calcium [Crestor] 20 mg PO DAILY 07/03/14 Insulin (Novolog) [Novolog Flexpen -] See Protocol SQ ACHS #1 pen 07/10/14 Furosemide [Lasix -] 20 mg PO DAILY 03/14/15 Metoprolol Succinate [Toprol Xl] 50 mg PO DAILY 03/14/15 Omeprazole [Prilosec (RX)] 40 mg PO DAILY 03/14/15 Amlodipine Besylate [Norvasc -] 10 mg PO DAILY tablet 05/10/17 Insulin (Levemir) [Levemir Vial] 18 units SQ HS ml 05/10/17 Insulin Sliding Scale [Novolog Vial Sliding Scale -] 1 vial SQ TIDAC units 03/29 Lisinopril [Prinivil] 20 mg PO DAILY tablet 05/10/17 Metoprolol Succinate [Toprol XL -] 50 mg PO DAILY tab.sr.24h 05/10/17 pr home
[2017-05-10 17:20] VITALS: BP 138/56; PULSE 60; TEMP 97.9
[2017-05-10] MEDS ORDERED: INSULIN DETEMIR 100 UNITS/ML MDV SQ SCH (22:00)
== END 2017-05-10 18:10 | disposition home or self-care (01) | DRG 638 ==
LOC: JER 16:19 → JERBED 19:03 → J8W 20:28 → OBSVTOIN 20:37 → J8W 05-10 15:34
PROVIDERS: ADMIT Internal Medicine; ATTEND Internal Medicine
DX: E11.65 Type 2 diabetes mellitus with hyperglycemia (principal); N17.9 Acute kidney failure, unspecified; I10 Essential (primary) hypertension; I25.10 Atherosclerotic heart disease of native coronary artery without angina pectoris; E78.00 Pure hypercholesterolemia, unspecified; M19.90 Unspecified osteoarthritis, unspecified site; E78.5 Hyperlipidemia, unspecified; H53.8 Other visual disturbances; H43.399 Other vitreous opacities, unspecified eye; Z95.5 Presence of coronary angioplasty implant and graft; Z79.4 Long term (current) use of insulin
CPT/HCPCS: 36415; 80053; 81003; 82803; 82947; 82962; 83036; 85025; 99284-25; G0378

== ENCOUNTER 2018-06-14 12:50 | Inpatient (IN) | payer OTHER ==
[2018-06-14] MEDS ORDERED: ACETAMINOPHEN 325 MG TABLET (FP) PO ONE (13:53)
[2018-06-14] MEDS ORDERED: ALBUTEROL SO4 0.083% IH SOL 2.5 MG/3 ML VIAL.NEB. NEB ONE ×2 (13:53→14:58)
--- NOTE | 2018-06-14 14:00 | PDOC ---
History of Present Illness - General Chief Complaint: Cold Symptoms Stated Complaint: COLD SYMPTOMS Time Seen by Provider: 06/14/18 13:29 History Source: Patient - History of Present Illness Initial Comments: 06/14/18 13:55 Patient is a 77 y/o female with a history of DM and 5 stents who presents today four a cough. The cough began three days ago and has been worsening. She is having trouble sleeping. She is coughing up green phlem. She has also been feeling fevers and chills. No sick contacts. 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 Denies any chest pain, nausea , vomiting, or feelings of congestions. Patient has no other complaints. Past History - Past Medical History Allergies/Adverse Reactions: Allergies Allergy/AdvReac Type Severity Reaction Status Date / Time No Known Allergies Allergy Verified 06/14/18 13:01 Home Medications: Ambulatory Orders Unobtainable 06/14/18 Cardiac Disorders: Yes (CAD, Stents x3) COPD: No Diabetes: Yes HTN: Yes Hypercholesterolemia: Yes - Immunization History Immunization Up to Date: Yes - Suicide/Smoking/Psychosocial Hx Smoking History: Never smoked Have you smoked in the past 12 months: No Information on smoking cessation initiated: No Hx Alcohol Use: No Drug/Substance Use Hx: No Substance Use Type: None Review of Systems - Review of Systems Constitutional: Yes: Chills, Fever HEENTM: No: Eye Pain Respiratory: Yes: Cough, Productive cough. No: Shortness of Breath Cardiac (ROS): No: Chest Pain ABD/GI: No: Abdominal Distended, Diarrhea, Nausea : No: Dysuria *Physical Exam - Vital Signs Last Vital Signs Temp Pulse Resp BP Pulse Ox 102.7 F H 65 16 112/49 L 96 06/14/18 13:01 06/14/18 13:01 06/14/18 13:01 06/14/18 13:01 06/14/18 13:01 - Physical Exam Comments: 06/14/18 13:59 GENERAL: A & O x3, no distress, coughing htroughout interview HEENT: EOMI, non eyrethematous pharynx HEART: RRR, no murmurs, rubs, or gallops LUNGS: expiratory wheezing at bases with some crackles ABDOMEN: soft, non tender, non distended EXTREMITIES: no pitting edema ED Treatment Course - LABORATORY CBC & Chemistry Diagram: 06/15/18 07:00 06/15/18 07:00 - RADIOLOGY Radiology Studies Ordered: Category Date Time Status CHEST - PA [RAD] Stat Radiology 06/14/18 13:54 Ordered Medical Decision Making - Medical Decision Making 06/14/18 14:00 f/u labs, CXR tyelnol for fever 06/14/18 15:31 influenza positive tamifl u ordered f/u CXR WBC 12, bands 12 patient with hospital exposure, will treat for hospital acquired PNA Vanc, Zosyn, Azithromycin 06/14/18 16:38 patient meets sepsis criteria admitted, 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
--- NOTE | 2018-06-14 14:07 | PDOC ---
Attending Attestation - Resident Resident Name: Suki Franco - ED Attending Attestation I have performed the following: I have examined & evaluated the patient, The case was reviewed & discussed with the resident, I agree w/resident's findings & plan, Exceptions are as noted - HPI HPI: 06/14/18 15:56 The patient is a 77 year old female, with a significant PMH of diabetes mellitus , CAD s/p 5 stents, who presents to the emergency department with 3 days of worsening productive cough with green sputum. The patient also endorses subjective fever, chills, sore throat and trouble sleeping flat. Per her son, she is also very weak and needs a lot of help to walk. Pt admits to dyspnea on exertion for the last 3 days. The patient denies any sick contacts or travel. The patient denies taking any medications prior to arrival. The patient states she did receive a flu shot this year. The patient denies chest pain, shortness of breath, headache and dizziness. Denies nausea, vomit, diarrhea and constipation. Denies dysuria, frequency, urgency and hematuria. Allergies: NKA - Physicial Exam PE: 06/14/18 15:57 agree with resident exam - Medical Decision Making 06/14/18 14:58 77yo F hx CAD, DM presents to the ED with 3 days of fevers, weakness, cough productive of green sputum. On arrival to the ED, pt weak appearing, but not toxic, lungs with crackles R>L and pt febrile to 102.7. Pt is flu+. + Leukocytosis to 12 with 12% bandemia. Likely influenza complicated by superimposed PNA. Plan for labs, XR, likely admit. 06/14/18 16:32 Case admitted to hospitalist, sign out given by Dr. Franco to the ANKLE PATCH MOLDER Cynthia Case discussed in detail with admitting physician including history, physical exam and ancillary studies. Admitting physician has assumed care for the patient, will follow all pending diagnostics and will complete the evaluation and treatment.
[2018-06-14 14:36] LABS: BASO % 0.6 % (0-2.0); EOS % 0.2 % (0-4.5); HEMATOCRIT 32.3 % (32.4-45.2); HEMOGLOBIN 9.9 GM/dL (10.7-15.3); LYMPH % 13.2 % (8-40); MCHC 30.6 g/dl (32.0-36.0); MEAN CELL VOLUME 63.9 fl (80-96); MEAN PLT VOLUME 9.1 fl (7.5-11.1); MONO % 17.2 % (3.8-10.2); NEUT % 68.8 % (42.8-82.8); PLATELET COUNT 165 K/MM3 (134-434); RBC 5.05 M/mm3 (3.60-5.2); RDW 18.7 % (11.6-15.6); WHITE BLOOD COUNT 12.2 K/mm3 (4.0-10.0)
[2018-06-14 14:40] LABS: MCH 19.5 pg (25.7-33.7)
[2018-06-14] MEDS ORDERED: ACETAMINOPHEN 325 MG TABLET (FP) ONE (14:59)
[2018-06-14 15:03] LABS: ALK PHOS 61 U/L (45-117); ANION GAP 9 MMOL/L (8-16); BILIRUBIN,TOTAL 0.4 mg/dL (0.2-1); BLOOD UREA NITROGEN 30 mg/dL (7-18); CALCIUM 7.9 mg/dL (8.5-10.1); CHLORIDE 107 mmol/L (98-107); CO2 25 mmol/L (21-32); CREATININE 1.7 mg/dL (0.55-1.3); GLUCOSE,RANDOM 104 mg/dL (74-106); POTASSIUM 3.9 mmol/L (3.5-5.1); SGOT/AST 117 U/L (15-37); SGPT/ALT 26 U/L (13-61); SODIUM 141 mmol/L (136-145); TOT PROT 6.8 g/dl (6.4-8.2)
[2018-06-14] MEDS ORDERED: OSELTAMIVIR PHOSPHATE 75 MG CAPSULE PO ONE (15:14)
[2018-06-14 15:21] LABS: ANISOCYTOSIS 3+; MACROCYTOSIS 0; OVALOCYTE 1+; PLATELET ESTIMATE DECREASED; TARGET CELLS 1+
[2018-06-14] MEDS ORDERED: OSELTAMIVIR PHOSPHATE 75 MG CAPSULE ONE (16:00)
[2018-06-14] MEDS ORDERED: PIPERACILLIN/TAZOB 4.5 GM 4.5 GM in DEXTROSE 5%-WATER 100 ML IVPB ONE (16:04)
[2018-06-14] MEDS ORDERED: VANCOMYCIN 1,000 MG in DEXTROSE 5%-WATER - 250 ML IVPB ONE (16:04)
[2018-06-14] MEDS ORDERED: AZITHROMYCIN IVPB 500 MG in DEXTROSE 5%-WATER - 250 ML IVPB ONE (16:05)
[2018-06-14] MEDS ORDERED: VANCOMYCIN 1 GRAM (PRE-DOCKED) 1,000 MG/250 ML BAG IVPB ONE (16:53)
[2018-06-14] MEDS ORDERED: PIPERACILLIN/TAZOB 4.5 GM 4.5 GM/100 ML BAG IVPB ONE (16:53)
[2018-06-14] MEDS ORDERED: AZITHROMYCIN IVPB 500 MG/250 ML BAG IVPB ONE (16:53)
--- NOTE | 2018-06-14 18:20 | HP ---
CHIEF COMPLAINT: cough, shortness of breath, fever, general malaise PCP: Dr. Rick Mcgarry HISTORY OF PRESENT ILLNESS: The patient is a 77 year old female, with a significant PMH of diabetes mellitus , CAD s/p 5 stents, GERD and hypertension. She presents to the ED today with 3 days of congestion, productive cough, green sputum and fever and chills at home. She is retired and does not work in a hospital setting. She endorses sore throat and chills. Also having trouble laying flat at night. She is also having dyspnea with any physical exertion. In the ED she was swabbed for the flu and is now positive. Initially she was thought to have pneumonia, but chest xray does not support this diagnosis, however, she has scattered rhonchi, wheezing with accessory muscle use. In the ED she received Zosyn and Vancomycin. Since she is having high fevers, will send for blood cultures and start on empiric antibiotics. She will need to be monitored inpatient for flu complications as she is over 65 years, a diabetic and has advanced heart disease. Will monitor overnight and re evaluate in a.m. Will repeat xray in a.m. No history of asthma, COPD or smoking. ER course was notable for: (1) meets sepsis criteria on admission: wbc 12.2, fever 102.7, ESTELA, short of breath, source of fever likely flu. chest xray does not support diagnosis of pneumonia, likely bronchitis vs. complications of the flu (2) no lactic acidosis. (3) Recent Travel: none PAST MEDICAL HISTORY: diabetes mellitus, CAD s/p 5 stents, GERD and hypertension PAST SURGICAL HISTORY: CAD s/p 5 stents Social History: Smoking: none Alcohol: none Drugs: none Family History: Allergies No Known Allergies Allergy (Verified 06/14/18 13:01) HOME MEDICATIONS: Home Medications Medication Instructions Recorded Unobtainable 06/14/18 REVIEW OF SYSTEMS CONSTITUTIONAL: Absent: loss of appetite, weight change HEENT: Absent: throat pain, throat swelling, difficulty swallowing, mouth swelling, ear pain, eye pain, visual changes CARDIOVASCULAR: Absent: chest pain, syncope, palpitations, irregular heart rate, lightheadedness , peripheral edema RESPIRATORY: Absent: wheezing, stridor, hemoptysis GASTROINTESTINAL: Absent: abdominal pain, abdominal distension, nausea, vomiting, diarrhea, constipation, melena, hematochezia GENITOURINARY: Absent: dysuria, frequency, urgency, hesitancy, hematuria, flank pain, genital pain MUSCULOSKELETAL: Absent: myalgia, arthralgia, joint swelling, back pain, neck pain SKIN: Absent: rash, itching, pallor HEMATOLOGIC/IMMUNOLOGIC: Absent: easy bleeding, easy bruising, lymphadenopathy, frequent infections ENDOCRINE: Absent: unexplained weight gain, unexplained weight loss, heat intolerance, cold intolerance NEUROLOGIC: Absent: headache, focal weakness or paresthesias, dizziness, unsteady gait, seizure, mental status changes, bladder or bowel incontinence PSYCHIATRIC: Absent: anxiety, depression, suicidal or homicidal ideation, hallucinations. PHYSICAL EXAMINATION Vital Signs - 24 hr 06/14/18 06/14/18 06/14/18 13:01 13:30 16:30 Temperature 102.7 F H 100.0 F H Pulse Rate 65 Pulse Rate [ 58 L Right] Respiratory 16 18 Rate Blood Pressure 112/49 L Blood Pressure 124/54 L [Right Arm] O2 Sat by Pulse 96 97 97 Oximetry (%) GENERAL: Awake, alert, and fully oriented, in mild respiratory distress. HEAD: Normal with no signs of trauma. EYES: Pupils equal, round and reactive to light, extraocular movements intact, sclera anicteric, conjunctiva clear. No lid lag. EARS, NOSE, THROAT: Ears normal, nares patent, oropharynx clear without exudates. Moist mucous membranes. NECK: Normal range of motion, supple without lymphadenopathy, JVD, or masses. LUNGS:lungs with evidence of course congestion bilaterally, scattered wheezing, mild respiratory distress with abdominal muscle use HEART: Regular rate and rhythm, normal S1 and S2 without murmur, rub or gallop. ABDOMEN: Soft, nontender, not distended, normoactive bowel sounds, no guarding, no rebound, no masses. No hepatomegaly or splenomegaly. MUSCULOSKELETAL: Normal range of motion at all joints. No bony deformities or tenderness. No CVA tenderness. UPPER EXTREMITIES: No peripheral edema. LOWER EXTREMITIES: No peripheral edema. NEUROLOGICAL: Normal speech. PSYCHIATRIC: Cooperative. Good eye contact. Appropriate mood and affect. SKIN: Warm, dry, normal turgor, no rashes or lesions noted, normal capillary refill. Laboratory Results - last 24 hr 06/14/18 06/14/18 06/14/18 14:18 14:18 14:36 WBC 12.2 H RBC 5.05 Hgb 9.9 L Hct 32.3 L MCV 63.9 L MCH 19.5 L MCHC 30.6 L RDW 18.7 H Plt Count 165 MPV 9.1 D Absolute Neuts (auto) 8.4 H Neutrophils % 68.8 D Neutrophils % (Manual) 51.5 Band Neutrophils % 12.4 Lymphocytes % 13.2 D Lymphocytes % (Manual) 18.6 Monocytes % 17.2 H Monocytes % (Manual) 17 H Eosinophils % 0.2 D Eosinophils % (Manual) 0.0 Basophils % 0.6 Basophils % (Manual) 1.0 Myelocytes % (Man) 0 Promyelocytes % (Man) 0 Blast Cells % (Manual) 0 Nucleated RBC % 0 Metamyelocytes 0 Hypochromia 1+ Platelet Estimate Decreased Polychromasia 1+ Poikilocytosis 2+ Anisocytosis 3+ Microcytosis 3+ Macrocytosis 0 Target Cells 1+ Ovalocytes 1+ Stomatocytes 1+ Schistocytes 2+ Sodium 141 Potassium 3.9 Chloride 107 Carbon Dioxide 25 Anion Gap 9 BUN 30 H Creatinine 1.7 H Creat Clearance w eGFR 28.99 Random Glucose 104 Lactic Acid Calcium 7.9 L Total Bilirubin 0.4 AST 117 H ALT 26 Alkaline Phosphatase 61 Total Protein 6.8 Albumin 3.0 L Influenza A (Rapid) Positive A Influenza B (Rapid) Negative 06/14/18 17:00 WBC RBC Hgb Hct MCV MCH MCHC RDW Plt Count MPV Absolute Neuts (auto) Neutrophils % Neutrophils % (Manual) Band Neutrophils % Lymphocytes % Lymphocytes % (Manual) Monocytes % Monocytes % (Manual) Eosinophils % Eosinophils % (Manual) Basophils % Basophils % (Manual) Myelocytes % (Man) Promyelocytes % (Man) Blast Cells % (Manual) Nucleated RBC % Metamyelocytes Hypochromia Platelet Estimate Polychromasia Poikilocytosis Anisocytosis Microcytosis Macrocytosis Target Cells Ovalocytes Stomatocytes Schistocytes Sodium Potassium Chloride Carbon Dioxide Anion Gap BUN Creatinine Creat Clearance w eGFR Random Glucose Lactic Acid 1.0 Calcium Total Bilirubin AST ALT Alkaline Phosphatase Total Protein Albumin Influenza A (Rapid) Influenza B (Rapid) ASSESSMENT/PLAN: The patient is a 77 year old female, with a significant PMH of diabetes mellitus , CAD s/p 5 stents, GERD and hypertension. She presents to the ED today with 3 days of congestion, productive cough, green sputum and fever and chills at home. She is retired and does not work in a hospital setting. She endorses sore throat and chills. Also having trouble laying flat at night. She is also having dyspnea with any physical exertion. In the ED she was swabbed for the flu and is now positive. Initially she was thought to have pneumonia, but chest xray does not support this diagnosis, however, she has scattered rhonchi, wheezing with accessory muscle use. In the ED she received Zosyn and Vancomycin. Since she is having high fevers, will send for blood cultures and start on empiric antibiotics. She will need to be monitored inpatient for flu complications as she is over 65 years, a diabetic and has advanced heart disease. Sepsis: Rule out pneumonia Likely influenza complicated by acute respiratory failure Meets sepsis criteria. has wbc 12.2, fevers 102.7, dyspnea, ESTELA. Monitor for flu complications. start on tamiflu. prophylactic antibiotics for possible pneumonia, although chest xray does not support this diagnosis. Will repeat chest xray in a.m. Will order: - scheduled duonebs - zosyn x 24 hours - repeat chest xray in a.m. - supplemental oxygen to maintain oxygen >92%. - tamiflu 30mg bid x 5 days Endocrine Diabetes II. on Basaglar, Novolog and metformin 500 bid at home. start on novolog SS, levemir 55 units in a.m. Card: CAD s/p 5 stents on ASA therapy check ekg fen tolerating po monitor electrolytes diabetic diet prophy SCDs, if LOS > 48 hours, add heparin full code Visit type - Emergency Visit Emergency Visit: Yes ED Registration Date: 06/14/18 Care time: The patient presented to the Emergency Department on the above date and was hospitalized for further evaluation of their emergent condition. - New Patient This patient is new to me today: Yes Date on this admission: 06/14/18 - Critical Care Critical Care patient: No
[2018-06-14] MEDS ORDERED: ALBUTEROL SO4 2.5/IPRATROPIUM 0.5 INH SOL 3 ML VIAL.NEB. NEB PRN (18:30)
[2018-06-14 20:08] VITALS: BMI 34.3
[2018-06-14] MEDS: ALBUTEROL SO4 2.5/IPRATROPIUM 0.5 INH SOL 3 ML VIAL.NEB. NEB SCH ×2 (20:25→20:26)
[2018-06-14] MEDS: SODIUM CHLORIDE 1,000 ML IV SCH (20:43)
[2018-06-14] MEDS ORDERED: DEXTROSE 5%-WATER - 50 ML IVPB ONE (21:16)
[2018-06-14] MEDS ORDERED: PIPERACILLIN/TAZOBACTAM 2.25 GM VIAL IVPB ONE (21:16)
[2018-06-14] MEDS ORDERED: PT OWN MED DRAWER 7, Y5N ONE (21:16)
[2018-06-14] MEDS: INSULIN SLIDING SCALE (NOVOLOG) 1 VIAL SQ SCH (21:55)
[2018-06-14] MEDS: OSELTAMIVIR PHOSPHATE 30 MG CAPSULE PO SCH (22:05)
[2018-06-14] MEDS: PIPERACILLIN/TAZOB 2.25 GM 2.25 GM in DEXTROSE 5%-WATER - 50 ML IVPB SCH (22:56)
[2018-06-14] MEDS ORDERED: PIPERACILLIN/TAZOB 2.25 GM 2.25 GM in DEXTROSE 5%-WATER - 50 ML IVPB SCH (23:00)
[2018-06-15] MEDS ORDERED: PIPERACILLIN/TAZOBACTAM 2.25 GM VIAL IVPB ONE ×3 (05:59→16:37)
[2018-06-15] MEDS ORDERED: DEXTROSE 5%-WATER - 50 ML IVPB ONE ×3 (06:00→16:37)
[2018-06-15] MEDS: ACETAMINOPHEN 325 MG TABLET (FP) PO PRN (06:02)
[2018-06-15] MEDS: PIPERACILLIN/TAZOB 2.25 GM 2.25 GM in DEXTROSE 5%-WATER - 50 ML IVPB SCH ×3 (06:02→17:13)
[2018-06-15] MEDS: INSULIN (LEVEMIR) 100 UNITS/ML UNITS SQ SCH (06:06)
[2018-06-15] MEDS: INSULIN SLIDING SCALE (NOVOLOG) 1 VIAL SQ SCH ×4 (06:57→22:15)
[2018-06-15 08:27] LABS: ALBUMIN 2.5 g/dl (3.4-5.0); ALK PHOS 48 U/L (45-117); ANION GAP 10 MMOL/L (8-16); BILIRUBIN,TOTAL 0.3 mg/dL (0.2-1); BLOOD UREA NITROGEN 37 mg/dL (7-18); CALCIUM 7.2 mg/dL (8.5-10.1); CHLORIDE 105 mmol/L (98-107); CO2 25 mmol/L (21-32); CREATININE 2.5 mg/dL (0.55-1.3); GLUCOSE,RANDOM 108 mg/dL (74-106); HEMATOCRIT 27.5 % (32.4-45.2); HEMOGLOBIN 8.5 GM/dL (10.7-15.3); MAGNESIUM 2.2 mg/dL (1.8-2.4); MCHC 30.9 g/dl (32.0-36.0); MEAN CELL VOLUME 63.4 fl (80-96); MEAN PLT VOLUME 9.6 fl (7.5-11.1); PLATELET COUNT 177 K/MM3 (134-434); POTASSIUM 3.6 mmol/L (3.5-5.1); RBC 4.35 M/mm3 (3.60-5.2); SGOT/AST 92 U/L (15-37); SGPT/ALT 22 U/L (13-61); SODIUM 140 mmol/L (136-145); WHITE BLOOD COUNT 7.9 K/mm3 (4.0-10.0)
[2018-06-15] MEDS: ALBUTEROL SO4 2.5/IPRATROPIUM 0.5 INH SOL 3 ML VIAL.NEB. NEB SCH ×4 (08:29→20:01)
[2018-06-15 08:46] LABS: MCH 19.6 pg (25.7-33.7)
[2018-06-15] MEDS ORDERED: PT OWN MED DRAWER 7, Y5N ONE ×2 (09:36→22:11)
[2018-06-15] MEDS: amLODIPine BESYLATE 10 MG TABLET (FP) PO SCH (09:40)
[2018-06-15] MEDS: ASPIRIN COATED 81 MG TABLET.EC PO SCH (09:40)
[2018-06-15] MEDS: PANTOPRAZOLE 40 MG TABLET (FP) PO SCH (09:40)
[2018-06-15] MEDS: OSELTAMIVIR PHOSPHATE 30 MG CAPSULE PO SCH ×2 (09:40→22:14)
[2018-06-15] MEDS ORDERED: CHLORTHALIDONE 25 MG TABLET PO SCH (10:00)
--- NOTE | 2018-06-15 10:07 | PN ---
Physical Exam: SUBJECTIVE: Patient seen and examined at the bedside. in no acute distress. tells me she feels improved. OBJECTIVE: hmg below baseline, iron studies ordered creatinine now 2.[address] for [address] blood [address] scan of chest shows mild centrilobular emphysema on RUL, min atelectic changes still congested, still having some shortness of breath with exertion. start on solumedrol q6 with close monitoring of blood sugars. Vital Signs Period Temp Pulse Resp BP Sys/Spence Pulse Ox Last 24 Hr 98.4 F-102.7 F 51-65 16-20 112-146/49-70 94-97 GENERAL: Awake, alert, and fully oriented, in mild respiratory distress. HEAD: Normal with no signs of trauma. EYES: Pupils equal, round and reactive to light, extraocular movements intact, sclera anicteric, conjunctiva clear. No lid lag. EARS, NOSE, THROAT: Ears normal, nares patent, oropharynx clear without exudates. Moist mucous membranes. NECK: Normal range of motion, supple without lymphadenopathy, JVD, or masses. LUNGS:lungs with evidence of course congestion bilaterally, scattered wheezing, mild respiratory distress with abdominal muscle use HEART: Regular rate and rhythm, normal S1 and S2 without murmur, rub or gallop. ABDOMEN: Soft, nontender, not distended, normoactive bowel sounds, no guarding, no rebound, no masses. No hepatomegaly or splenomegaly. MUSCULOSKELETAL: Normal range of motion at all joints. No bony deformities or tenderness. No CVA tenderness. UPPER EXTREMITIES: No peripheral edema. LOWER EXTREMITIES: No peripheral edema. NEUROLOGICAL: Normal speech. PSYCHIATRIC: Cooperative. Good eye contact. Appropriate mood and affect. SKIN: Warm, dry, normal turgor, no rashes or lesions noted, normal capillary refill. Laboratory Results - last 24 hr 06/14/18 06/14/18 06/14/18 14:18 14:18 14:36 WBC 12.2 H RBC 5.05 Hgb 9.9 L Hct 32.3 L MCV 63.9 L MCH 19.5 L MCHC 30.6 L RDW 18.7 H Plt Count 165 MPV 9.1 D Absolute Neuts (auto) 8.4 H Neutrophils % 68.8 D Neutrophils % (Manual) 51.5 Band Neutrophils % 12.4 Lymphocytes % 13.2 D Lymphocytes % (Manual) 18.6 Monocytes % 17.2 H Monocytes % (Manual) 17 H Eosinophils % 0.2 D Eosinophils % (Manual) 0.0 Basophils % 0.6 Basophils % (Manual) 1.0 Myelocytes % (Man) 0 Promyelocytes % (Man) 0 Blast Cells % (Manual) 0 Nucleated RBC % 0 Metamyelocytes 0 Hypochromia 1+ Platelet Estimate Decreased Polychromasia 1+ Poikilocytosis 2+ Anisocytosis 3+ Microcytosis 3+ Macrocytosis 0 Target Cells 1+ Ovalocytes 1+ Stomatocytes 1+ Schistocytes 2+ Sodium 141 Potassium 3.9 Chloride 107 Carbon Dioxide 25 Anion Gap 9 BUN 30 H Creatinine 1.7 H Creat Clearance w eGFR 28.99 POC Glucometer Random Glucose 104 Lactic Acid Calcium 7.9 L Magnesium Ferritin Total Bilirubin 0.4 AST 117 H ALT 26 Alkaline Phosphatase 61 Total Protein 6.8 Albumin 3.0 L Influenza A (Rapid) Positive A Influenza B (Rapid) Negative 06/14/18 06/14/18 06/15/18 17:00 21:50 06:08 WBC RBC Hgb Hct MCV MCH MCHC RDW Plt Count MPV Absolute Neuts (auto) Neutrophils % Neutrophils % (Manual) Band Neutrophils % Lymphocytes % Lymphocytes % (Manual) Monocytes % Monocytes % (Manual) Eosinophils % Eosinophils % (Manual) Basophils % Basophils % (Manual) Myelocytes % (Man) Promyelocytes % (Man) Blast Cells % (Manual) Nucleated RBC % Metamyelocytes Hypochromia Platelet Estimate Polychromasia Poikilocytosis Anisocytosis Microcytosis Macrocytosis Target Cells Ovalocytes Stomatocytes Schistocytes Sodium Potassium Chloride Carbon Dioxide Anion Gap BUN Creatinine Creat Clearance w eGFR POC Glucometer 130 63 Random Glucose Lactic Acid 1.0 Calcium Magnesium Ferritin Total Bilirubin AST ALT Alkaline Phosphatase Total Protein Albumin Influenza A (Rapid) Influenza B (Rapid) 06/15/18 06/15/18 07:00 07:00 WBC 7.9 RBC 4.35 Hgb 8.5 L Hct 27.5 L MCV 63.4 L MCH 19.6 L MCHC 30.9 L RDW 19.0 H Plt Count 177 MPV 9.6 Absolute Neuts (auto) Neutrophils % Neutrophils % (Manual) Band Neutrophils % Lymphocytes % Lymphocytes % (Manual) Monocytes % Monocytes % (Manual) Eosinophils % Eosinophils % (Manual) Basophils % Basophils % (Manual) Myelocytes % (Man) Promyelocytes % (Man) Blast Cells % (Manual) Nucleated RBC % Metamyelocytes Hypochromia Platelet Estimate Polychromasia Poikilocytosis Anisocytosis Microcytosis Macrocytosis Target Cells Ovalocytes Stomatocytes Schistocytes Sodium 140 Potassium 3.6 Chloride 105 Carbon Dioxide 25 Anion Gap 10 BUN 37 H Creatinine 2.5 H Creat Clearance w eGFR 18.58 POC Glucometer Random Glucose 108 H Lactic Acid Calcium 7.2 L Magnesium 2.2 Ferritin 203.7 Total Bilirubin 0.3 AST 92 H ALT 22 Alkaline Phosphatase 48 Total Protein 6.0 L Albumin 2.5 L Influenza A (Rapid) Influenza B (Rapid) Active Medications Generic Name Dose Route Start Last Admin Trade Name Freq PRN Reason Stop Dose Admin Acetaminophen 650 mg 06/14/18 19:08 06/15/18 06:02 Tylenol - PO 650 mg Q6H PRN Administration FEVER Albuterol/Ipratropium 1 amp 06/14/18 18:30 06/15/18 08:29 Duoneb - NEB 1 amp RQID ALEXIA Administration Amlodipine Besylate 10 mg 06/15/18 10:00 06/15/18 09:40 Norvasc - PO 10 mg DAILY ALEXIA Administration Aspirin 81 mg 06/15/18 10:00 06/15/18 09:40 Ecotrin - PO 81 mg DAILY ALEXIA Administration Chlorthalidone 25 mg 06/15/18 10:00 Hygroton - PO DAILY ALEXIA Sodium Chloride 1,000 mls @ 50 mls/hr 06/14/18 18:45 06/14/18 20:43 Normal Saline - IV 06/15/18 18:35 50 mls/hr ASDIR ALEXIA Administration Piperacillin Sod/Tazobactam 50 mls @ 100 mls/hr 06/14/18 23:00 06/15/18 06:02 Sod 2.25 gm/ Dextrose IVPB 06/15/18 11:29 100 mls/hr Q6H ALEXIA Administration Insulin Aspart 1 vial 06/14/18 22:00 06/15/18 06:57 Novolog Vial Sliding Scale - SQ Not Given ACHS [facility] Protocol Insulin Detemir 50 units 06/15/18 07:00 06/15/18 06:06 Levemir Vial SQ 50 units DAILY@0700 ALEXIA Administration Losartan Potassium 100 mg 06/15/18 10:00 Cozaar - PO DAILY ALEXIA Oseltamivir Phosphate 30 mg 06/14/18 22:00 06/15/18 09:40 Tamiflu - PO 06/19/18 21:59 30 mg BID ALEXIA Administration Pantoprazole Sodium 40 mg 06/15/18 10:00 06/15/18 09:40 Protonix - PO 40 mg DAILY ALEXIA Administration ASSESSMENT/PLAN: The patient is a 77 year old female, with a significant PMH of diabetes mellitus , CAD s/p 5 stents, GERD and hypertension. She presents to the ED with 3 days of congestion, productive cough, green sputum and fever and chills at home. She endorses sore throat and chills. Also had trouble laying flat at night. She is also having dyspnea with any physical exertion. In the ED she was swabbed for the flu and was positive. Initially she was thought to have pneumonia, but chest xray does not support this diagnosis, however, she has scattered rhonchi, wheezing with accessory muscle use. In the ED she received Zosyn and Vancomycin. She will need to be monitored inpatient for flu complications as she is over 65 years, a diabetic and has advanced heart disease. Sepsis: Rule out pneumonia Likely influenza complicated by acute respiratory failure, CT scan shows mild central lobular emphysema with min atelectic changes. Meets sepsis criteria. has wbc 12.2, fevers 102.7, dyspnea, ESTELA. wbc has stabalized, fever curve improving. ESTELA @ 2.2 On Zosyn Monitor for flu complications (has heart disease-advanced and septic on admission, also age >65 and long hx of diabetes). started on tamiflu. On scheduled duonebs supplemental oxygen to maintain oxygen >92%. tamiflu 30mg bid x 5 days solumedrol 40mg q6 for non improvement of congestion pulmonary following. Endocrine Diabetes II. on Basaglar, Novolog and metformin 500 bid at home. start on novolog SS, levemir 55 units in a.m. 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 Eduardo Kauffman ([facility]) No chest pain fen tolerating po monitor electrolytes diabetic diet prophy SCDs, if LOS > 48 hours, add heparin full code Visit type - Emergency Visit Emergency Visit: Yes ED Registration Date: 06/14/18 Care time: The patient presented to the Emergency Department on the above date and was hospitalized for further evaluation of their emergent condition. - New Patient This patient is new to me today: No - Critical Care Critical Care patient: No - Discharge Referral Referred to [facility] No
[2018-06-15] MEDS: LOSARTAN POTASSIUM 50 MG TABLET (FP) PO SCH (10:20)
--- NOTE | 2018-06-15 11:38 | EKG ---
Test Reason : Blood Pressure : / mmHG Vent. Rate : 064 BPM Atrial Rate : 064 BPM P-R Int : 150 ms QRS Dur : 080 ms QT Int : 398 ms P-R-T Axes : 034 -06 001 degrees QTc Int : 410 ms NORMAL SINUS RHYTHM NORMAL ECG WHEN COMPARED WITH ECG OF 14-MAR-2015 20:52, NON-SPECIFIC CHANGE IN ST SEGMENT IN LATERAL LEADS Confirmed by MERYL CLEVELAND, HENRIK ([id number]) on 06/15/2018 11:37:45 AM Referred By: Confirmed By:HENRIK SHETH MD
[2018-06-15] MEDS: methylPREDNISolone NA SUCC 40 MG/1 ML VIAL IVPUSH SCH ×2 (12:40→22:14)
--- NOTE | 2018-06-15 13:04 | CON.ID ---
Consult Consult Specialty:: infectious diseases Referred by:: Hospitalist Reason for Consultation:: pneumonia,flu - History of Present Illness Chief Complaint: sob,cough,weakness History of Present Illness: 77 year old female, with a significant PMH of diabetes mellitus, CAD s/p 5 stents, GERD and hypertension admitted with 3 days of congestion, productive cough, green sputum and fever and chills at home. She endorses sore throat and chills. Also having trouble laying flat at night. She is also having dyspnea with any physical exertion. patient was worked up and found to have flu positive patient currently feels better though still coughing she mentions that she has been producing yellowish thick sputum - History Source History Provided By: Family Member Limitations to Obtaining History: Language Barrier - Past Medical History Cardio/Vascular: Yes: CAD, HTN Musculoskeletal: Yes: Osteoarthritis Endocrine: Yes: Diabetes Mellitus - Past Surgical History Past Surgical History: Yes: Stent (Cardiac Stents x3) - Alcohol/Substance Use Hx Alcohol Use: No History of Substance Use: reports: None - Smoking History Smoking history: Never smoked Have you smoked in the past 12 months: No - Social History ADL: Independent History of Recent Travel: No Home Medications - Allergies Allergies/Adverse Reactions: Allergies Allergy/AdvReac Type Severity Reaction Status Date / Time No Known Allergies Allergy Verified 06/14/18 13:01 - Home Medications Home Medications: Ambulatory Orders Unobtainable 06/14/18 Family Disease History - Family Disease History Family Disease History: Diabetes: Mother Review of Systems - Review of Systems Constitutional: reports: Chills, Weakness HENT: reports: No Symptoms Neck: reports: No Symptoms Cardiovascular: reports: No Symptoms Respiratory: reports: Cough, SOB, SOB on Exertion, Wheezing Gastrointestinal: reports: No Symptoms Genitourinary: reports: No Symptoms Musculoskeletal: reports: No Symptoms Integumentary: reports: No Symptoms Neurological: reports: No Symptoms Endocrine: reports: No Symptoms Hematology/Lymphatic: reports: No Symptoms Psychiatric: reports: No Symptoms Physical Exam Vital Signs: Vital Signs Temperature 99.0 F 06/15/18 08:05 Pulse Rate 51 L 06/15/18 08:05 Respiratory Rate 20 06/15/18 08:05 Blood Pressure 125/70 06/15/18 08:05 O2 Sat by Pulse Oximetry (%) 94 L 06/15/18 08:00 Constitutional: Yes: Well Nourished, Calm, Mild Distress, Obese Eyes: Yes: Conjunctiva Clear Cardiovascular: Yes: Regular Rate and Rhythm Respiratory: Yes: Poor Air Entry (bases), Rhonchi, Other (on face mask) Gastrointestinal: Yes: Normal Bowel Sounds, Soft Musculoskeletal: Yes: WNL Extremities: Yes: WNL Neurological: Yes: Alert, Oriented Psychiatric: Yes: Alert, Oriented Labs: CBC, BMP 06/15/18 07:00 06/15/18 07:00 Imaging - Results Chest X-ray: Report Reviewed, Image Reviewed Ultrasound: Report Reviewed, Image Reviewed Assessment/Plan 77 year old female, with a significant PMH of diabetes mellitus, CAD s/p 5 stents, GERD and hypertension this patient with multiple medical problems looking at the xray i have a suspicion patient could have left sided pneumonia patient is getting ct scan of the chest r/o pneumonia r/o chf influenza weakness plan will start patient on zosyn incentive meet rest as per the team resp support
--- NOTE | 2018-06-15 13:42 | PN ---
Progress Note (short form) - Note Progress Note: PULMONARY CONSULTATION DICTATED 06/15/18 IMP ASTHMATIC BRONCHITIS INFLUENZA A ASHD S/P STENT X5 DM ACUTE ON CHRONIC KIDNEY INJURY PLAN IV STEROIDS INHALED BRONCHODILATORS O2 CULTURES TAMIFLU ANTI-TUSSIVES MONITOR LYTES,RENAL FUNCTION DR LUI Problem List - Problems (1) Influenza A Code(s): J10.1 - FLU DUE TO OTH IDENT INFLUENZA VIRUS W OTH RESP MANIFEST (2) Coronary artery disease Code(s): I25.10 - ATHSCL HEART DISEASE OF [place] CORONARY ARTERY W/O ANG PCTRS (3) Diabetes mellitus Code(s): E11.9 - TYPE 2 DIABETES MELLITUS WITHOUT COMPLICATIONS (4) Hypoxia Code(s): R09.02 - HYPOXEMIA (5) Respiratory distress Code(s): R06.00 - DYSPNEA, UNSPECIFIED (6) Wheezing Code(s): R06.2 - WHEEZING (7) ARF (acute renal failure) Code(s): N17.9 - ACUTE KIDNEY FAILURE, UNSPECIFIED (8) Asthmatic bronchitis Code(s): J45.909 - UNSPECIFIED ASTHMA, UNCOMPLICATED
--- NOTE | 2018-06-15 14:22 | CONS ---
DATE OF CONSULTATION: 06/15/2018 REFERRING PHYSICIAN: Jean-Pierre Michael NP HISTORY OF PRESENT ILLNESS: The patient is a 77-year-old female with a past medical history of diabetes, ASHD, status post stents, nonsmoker, admitted to [facility] complaining of a 3-day history of increasing shortness of breath, cough productive of green sputum, fever, chills, sore throat and generalized arthralgias and difficulty sleeping. She also had progressive weakness. She went to the emergency room with the above. In the ER she was found to have acute bronchospasm. She was also noted to be febrile and she was to 102.7 and dyspneic. She was started on IV antibiotics and transferred up to the medical floor for management. Of note influenza screen returned positive for influenza A. Patient underwent a CT scan of the chest earlier today which revealed no evidence of pneumonia. There is no history of occupational exposure to chemicals or fumes. She denies any history of COPD or asthma in the past. PAST MEDICAL HISTORY: Again includes diabetes mellitus, hypertension and ASHD, status post stents. REVIEW OF SYSTEMS: Positive shortness of breath. Positive cough. Positive bronchospasm. Positive sputum. Positive fever. Positive chills. No chest pain. No palpitations. No hemoptysis. CURRENT MEDICATIONS: Include Solu-Medrol 40 q.6, Tylenol, Cozaar, Zosyn, Duo-Neb, Norvasc, normal saline, Levemir, Tamiflu, Ecotrin, Hygroton and Protonix. PHYSICAL EXAMINATION: General: The patient is a well-developed, well-nourished female, awake, alert, mildly dyspneic but in no acute distress. Vital Signs: She is afebrile, T-max is 100, blood pressure is 125/70, respiratory rate is 20, O2 saturation is 94% on 2 L. HEENT: Normocephalic, atraumatic. Neck: Supple. Heart: Regular with S1, S2. Chest: Diffuse bilateral wheezes and rhonchi. Abdomen: Soft. Bowel sounds are positive. Extremities: No cyanosis or edema. LABORATORIES: Influenza A is positive. WBC is 7.9, hemoglobin 8.5, hematocrit 27.5 with a platelet count of 177,000. BUN 37, creatinine 2.5. Chest CT: Again emphysematous changes bilaterally, cardiomegaly but no acute infiltrates and/or effusions. IMPRESSION: 1. Hypoxemia, respiratory distress secondary to acute asthmatic bronchitis secondary to acute influenza A. 2. No evidence of pneumonia on computed axial tomography scan. 3. Acute on chronic kidney disease. 4. Atherosclerotic heart disease, status post stents x5. 6. Diabetes. PLAN: IV steroids, inhaled bronchodilators, supplemental O2. Obtain cultures. Continue Tamiflu, antitussives. Antibiotics as per ID. Monitor electrolytes as well as renal function. Thank you. SAUNDRA LUI M.D. MICHAEL/[id number]
[2018-06-16] MEDS ORDERED: PIPERACILLIN/TAZOBACTAM 2.25 GM VIAL IVPB ONE ×3 (01:13→16:32)
[2018-06-16] MEDS ORDERED: DEXTROSE 5%-WATER - 50 ML IVPB ONE ×3 (01:14→16:32)
[2018-06-16] MEDS: PIPERACILLIN/TAZOB 2.25 GM 2.25 GM in DEXTROSE 5%-WATER - 50 ML IVPB SCH ×3 (01:57→17:10)
[2018-06-16] MEDS: methylPREDNISolone NA SUCC 40 MG/1 ML VIAL IVPUSH SCH ×4 (03:00→22:06)
[2018-06-16] MEDS: INSULIN (LEVEMIR) 100 UNITS/ML UNITS SQ SCH (06:49)
[2018-06-16] MEDS: INSULIN SLIDING SCALE (NOVOLOG) 1 VIAL SQ SCH ×4 (06:49→22:03)
[2018-06-16 07:09] LABS: SERUM IRON SATURATION 4 % (15-55); TOTAL IRON BINDING CAPACITY 185 ug/dL (250-450); UIBC 177 ug/dL (118-369)
[2018-06-16] MEDS: ALBUTEROL SO4 2.5/IPRATROPIUM 0.5 INH SOL 3 ML VIAL.NEB. NEB SCH ×4 (07:29→21:59)
[2018-06-16] MEDS ORDERED: IRON SUCROSE INJECTION 100 MG in SODIUM CHLORIDE 95 ML IVPB ONE (09:00)
[2018-06-16] MEDS ORDERED: PT OWN MED DRAWER 7, Y5N ONE ×2 (09:46→22:01)
[2018-06-16] MEDS: PANTOPRAZOLE 40 MG TABLET (FP) PO SCH (09:50)
[2018-06-16] MEDS: OSELTAMIVIR PHOSPHATE 30 MG CAPSULE PO SCH ×2 (09:50→22:08)
[2018-06-16] MEDS: amLODIPine BESYLATE 10 MG TABLET (FP) PO SCH (09:50)
[2018-06-16] MEDS: ASPIRIN COATED 81 MG TABLET.EC PO SCH (09:50)
[2018-06-16 10:31] LABS: BASO % 0.2 % (0-2.0); HEMATOCRIT 30.2 % (32.4-45.2); HEMOGLOBIN 9.4 GM/dL (10.7-15.3); LYMPH % 11.6 % (8-40); MEAN CELL VOLUME 63.7 fl (80-96); MEAN PLT VOLUME 9.6 fl (7.5-11.1); MONO % 6.9 % (3.8-10.2); NEUT % 81.3 % (42.8-82.8); PLATELET COUNT 194 K/MM3 (134-434); RBC 4.74 M/mm3 (3.60-5.2); RDW 18.9 % (11.6-15.6); WHITE BLOOD COUNT 5.5 K/mm3 (4.0-10.0)
[2018-06-16 10:35] LABS: MCH 19.7 pg (25.7-33.7)
[2018-06-16 11:04] LABS: ALBUMIN 2.5 g/dl (3.4-5.0); ALK PHOS 50 U/L (45-117); ANION GAP 8 MMOL/L (8-16); BILIRUBIN,TOTAL 0.3 mg/dL (0.2-1); BLOOD UREA NITROGEN 51 mg/dL (7-18); CHLORIDE 106 mmol/L (98-107); CO2 23 mmol/L (21-32); CREATININE 2.8 mg/dL (0.55-1.3); GLUCOSE,RANDOM 207 mg/dL (74-106); MAGNESIUM 2.4 mg/dL (1.8-2.4); POTASSIUM 3.8 mmol/L (3.5-5.1); SGOT/AST 63 U/L (15-37); SGPT/ALT 24 U/L (13-61); SODIUM 138 mmol/L (136-145); TOT PROT 6.9 g/dl (6.4-8.2)
[2018-06-16] MEDS: LOSARTAN POTASSIUM 50 MG TABLET (FP) PO SCH (12:05)
--- NOTE | 2018-06-16 12:43 | PN ---
Progress Note, Physician History of Present Illness: PULMONARY ALERT,FEELING BETTER,LESS CONGESTED,LESS COUGH - Current Medication List Current Medications: Active Medications Acetaminophen (Tylenol -) 650 mg PO Q6H PRN PRN Reason: FEVER Last Admin: 06/15/18 06:02 Dose: 650 mg Albuterol/Ipratropium (Duoneb -) 1 amp NEB RQID [facility] Last Admin: 06/16/18 12:38 Dose: 1 amp Amlodipine Besylate (Norvasc -) 10 mg PO DAILY [facility] Last Admin: 06/16/18 09:50 Dose: 10 mg Aspirin (Ecotrin -) 81 mg PO DAILY [facility] Last Admin: 06/16/18 09:50 Dose: 81 mg Chlorthalidone (Hygroton -) 25 mg PO DAILY [facility] Piperacillin Sod/Tazobactam (Sod 2.25 gm/ Dextrose) 50 mls @ 100 mls/hr IVPB Q8H-IV [facility]; Protocol Last Admin: 06/16/18 09:49 Dose: 100 mls/hr Insulin Aspart (Novolog Vial Sliding Scale -) 1 vial SQ ACHS [facility]; Protocol Last Admin: 06/16/18 11:28 Dose: 6 units Insulin Detemir (Levemir Vial) 50 units SQ DAILY@0700 [facility] Last Admin: 06/16/18 06:49 Dose: 50 units Losartan Potassium (Cozaar -) 100 mg PO DAILY [facility] Last Admin: 06/16/18 12:05 Dose: Not Given Methylprednisolone Sodium Succinate (Solu-Medrol -) 40 mg IVPUSH Q6H-IV [facility] Last Admin: 06/16/18 09:49 Dose: 40 mg Oseltamivir Phosphate (Tamiflu -) 30 mg PO BID [facility] Stop: 06/19/18 21:59 Last Admin: 06/16/18 09:50 Dose: 30 mg Pantoprazole Sodium (Protonix -) 40 mg PO DAILY [facility] Last Admin: 06/16/18 09:50 Dose: 40 mg - Objective Vital Signs: Vital Signs Temperature 98.2 F 06/16/18 07:51 Pulse Rate 60 06/16/18 07:51 Respiratory Rate 16 06/16/18 07:51 Blood Pressure 145/70 06/16/18 07:51 O2 Sat by Pulse Oximetry (%) 96 06/16/18 08:00 Constitutional: Yes: Well Nourished, Calm Eyes: Yes: WNL HENT: Yes: WNL Neck: Yes: WNL Cardiovascular: Yes: Regular Rate and Rhythm, S1, S2 Respiratory: Yes: Wheezes (LESS WHEEZES BILATERALLY) Gastrointestinal: Yes: Normal Bowel Sounds, Soft Extremities: Yes: WNL Edema: No Labs: CBC, BMP 06/16/18 09:30 06/16/18 09:30 Problem List - Problems (1) Influenza A Code(s): J10.1 - FLU DUE TO OTH IDENT INFLUENZA VIRUS W OTH RESP MANIFEST (2) Coronary artery disease Code(s): I25.10 - ATHSCL HEART DISEASE OF [place] CORONARY ARTERY W/O ANG PCTRS (3) Diabetes mellitus Code(s): E11.9 - TYPE 2 DIABETES MELLITUS WITHOUT COMPLICATIONS (4) Hypoxia Code(s): R09.02 - HYPOXEMIA (5) Respiratory distress Code(s): R06.00 - DYSPNEA, UNSPECIFIED (6) Wheezing Code(s): R06.2 - WHEEZING (7) ARF (acute renal failure) Code(s): N17.9 - ACUTE KIDNEY FAILURE, UNSPECIFIED (8) Asthmatic bronchitis Code(s): J45.909 - UNSPECIFIED ASTHMA, UNCOMPLICATED Assessment/Plan IMP ASTHMATIC BRONCHITIS INFLUENZA A ASHD S/P STENT X5 DM ACUTE ON CHRONIC KIDNEY DISEASE PLAN IV STEROIDS SAME DOSE INHALED BRONCHODILATORS O2 TAMIFLU ANTI-TUSSIVES MONITOR LYTES,RENAL FUNCTION DR LUI Problem List - Problems (1) Influenza A Code(s): J10.1 - FLU DUE TO OTH IDENT INFLUENZA VIRUS W OTH RESP MANIFEST (2) Coronary artery disease Code(s): I25.10 - ATHSCL HEART DISEASE OF [place] CORONARY ARTERY W/O ANG PCTRS (3) Diabetes mellitus Code(s): E11.9 - TYPE 2 DIABETES MELLITUS WITHOUT COMPLICATIONS (4) Hypoxia Code(s): R09.02 - HYPOXEMIA (5) Respiratory distress Code(s): R06.00 - DYSPNEA, UNSPECIFIED (6) Wheezing Code(s): R06.2 - WHEEZING (7) ARF (acute renal failure) Code(s): N17.9 - ACUTE KIDNEY FAILURE, UNSPECIFIED (8) Asthmatic bronchitis Code(s): J45.909 - UNSPECIFIED ASTHMA, UNCOMPLICATED
[2018-06-16 12:45] LABS: PLATELET ESTIMATE ADEQUATE
--- NOTE | 2018-06-16 12:50 | PN ---
Progress Note, Physician History of Present Illness: patient improving breathing better - Current Medication List Current Medications: Active Medications Acetaminophen (Tylenol -) 650 mg PO Q6H PRN PRN Reason: FEVER Last Admin: 06/15/18 06:02 Dose: 650 mg Albuterol/Ipratropium (Duoneb -) 1 amp NEB RQID [facility] Last Admin: 06/16/18 12:38 Dose: 1 amp Amlodipine Besylate (Norvasc -) 10 mg PO DAILY [facility] Last Admin: 06/16/18 09:50 Dose: 10 mg Aspirin (Ecotrin -) 81 mg PO DAILY [facility] Last Admin: 06/16/18 09:50 Dose: 81 mg Chlorthalidone (Hygroton -) 25 mg PO DAILY [facility] Piperacillin Sod/Tazobactam (Sod 2.25 gm/ Dextrose) 50 mls @ 100 mls/hr IVPB Q8H-IV [facility]; Protocol Last Admin: 06/16/18 09:49 Dose: 100 mls/hr Insulin Aspart (Novolog Vial Sliding Scale -) 1 vial SQ ACHS [facility]; Protocol Last Admin: 06/16/18 11:28 Dose: 6 units Insulin Detemir (Levemir Vial) 50 units SQ DAILY@0700 [facility] Last Admin: 06/16/18 06:49 Dose: 50 units Losartan Potassium (Cozaar -) 100 mg PO DAILY [facility] Last Admin: 06/16/18 12:05 Dose: Not Given Methylprednisolone Sodium Succinate (Solu-Medrol -) 40 mg IVPUSH Q6H-IV [facility] Last Admin: 06/16/18 09:49 Dose: 40 mg Oseltamivir Phosphate (Tamiflu -) 30 mg PO BID [facility] Stop: 06/19/18 21:59 Last Admin: 06/16/18 09:50 Dose: 30 mg Pantoprazole Sodium (Protonix -) 40 mg PO DAILY [facility] Last Admin: 06/16/18 09:50 Dose: 40 mg - Objective Vital Signs: Vital Signs Temperature 98.2 F 06/16/18 07:51 Pulse Rate 60 06/16/18 07:51 Respiratory Rate 16 06/16/18 07:51 Blood Pressure 145/70 06/16/18 07:51 O2 Sat by Pulse Oximetry (%) 96 06/16/18 08:00 Constitutional: Yes: No Distress, Calm Cardiovascular: Yes: Regular Rate and Rhythm Respiratory: Yes: Regular, Poor Air Entry, Other Gastrointestinal: Yes: Normal Bowel Sounds, Soft Musculoskeletal: Yes: WNL Extremities: Yes: WNL Neurological: Yes: Alert, Oriented Psychiatric: Yes: Alert, Oriented Labs: CBC, BMP 06/16/18 09:30 06/16/18 09:30 Assessment/Plan 77 year old female, with a significant PMH of diabetes mellitus, CAD s/p 5 stents, GERD and hypertension this patient with multiple medical problems looking at the xray i have a suspicion patient could have left sided pneumonia patient is getting ct scan of the chest r/o pneumonia r/o chf influenza weakness plan continue abx for now if stable will deescalte tomorrow incentive meet rest as per the team resp support
--- NOTE | 2018-06-16 12:52 | PN ---
Physical Exam: SUBJECTIVE: Patient seen and examined at the bedside. feels better today, able to walk around without oxygen. OBJECTIVE: renal consult for elevated creat holding losartan and diuretic continue ivf hydration less congestion bilaterally physical therapy son and patient asking about possible rehab for lower ext weakness Vital Signs Period Temp Pulse Resp BP Sys/Spence Pulse Ox Last 24 Hr 97.8 F-98.2 F 60-63 16-20 134-145/59-75 96-96 GENERAL: Awake, alert, and fully oriented, in no respiratory distress. HEAD: Normal with no signs of trauma. EYES: Pupils equal, round and reactive to light, extraocular movements intact, sclera anicteric, conjunctiva clear. No lid lag. EARS, NOSE, THROAT: Ears normal, nares patent, oropharynx clear without exudates. Moist mucous membranes. NECK: Normal range of motion, supple without lymphadenopathy, JVD, or masses. LUNGS:lungs with mild congestion bilaterally,no wheezing, no respiratory distress HEART: Regular rate and rhythm ABDOMEN: Soft, nontender, not distended, normoactive bowel sounds, no guarding, no rebound, no masses. No hepatomegaly or splenomegaly. MUSCULOSKELETAL: Normal range of motion at all joints. No bony deformities or tenderness. No CVA tenderness. UPPER EXTREMITIES: No peripheral edema. LOWER EXTREMITIES: No peripheral edema. NEUROLOGICAL: Normal speech. PSYCHIATRIC: Cooperative. Good eye contact. Appropriate mood and affect. SKIN: Warm, dry, normal turgor, no rashes or lesions noted, normal capillary refill. Laboratory Results - last 24 hr 06/15/18 06/15/18 06/15/18 12:00 16:32 22:13 WBC RBC Hgb Hct MCV MCH MCHC RDW Plt Count MPV Absolute Neuts (auto) Neutrophils % Lymphocytes % Monocytes % Eosinophils % Basophils % Nucleated RBC % Platelet Estimate Platelet Comment Sodium Potassium Chloride Carbon Dioxide Anion Gap BUN Creatinine Creat Clearance w eGFR POC Glucometer 177 295 Random Glucose Calcium Magnesium Iron 8 L TIBC 185 L Iron Saturation 4 L Total Bilirubin AST ALT Alkaline Phosphatase Total Protein Albumin Vitamin B12 Serum Folate Stool Occult Blood 06/16/18 06/16/18 06/16/18 05:30 06:47 09:30 WBC RBC Hgb Hct MCV MCH MCHC RDW Plt Count MPV Absolute Neuts (auto) Neutrophils % Lymphocytes % Monocytes % Eosinophils % Basophils % Nucleated RBC % Platelet Estimate Platelet Comment Sodium 138 Potassium 3.8 Chloride 106 Carbon Dioxide 23 Anion Gap 8 BUN 51 H Creatinine 2.8 H Creat Clearance w eGFR 16.30 POC Glucometer 169 Random Glucose 207 H Calcium 7.0 L Magnesium 2.4 Iron TIBC Iron Saturation Total Bilirubin 0.3 AST 63 H ALT 24 Alkaline Phosphatase 50 Total Protein 6.9 Albumin 2.5 L Vitamin B12 852 Serum Folate 22 H Stool Occult Blood Negative 06/16/18 06/16/18 09:30 11:23 WBC 5.5 RBC 4.74 Hgb 9.4 L Hct 30.2 L MCV 63.7 L MCH 19.7 L MCHC 31.0 L RDW 18.9 H Plt Count 194 MPV 9.6 Absolute Neuts (auto) 4.5 Neutrophils % 81.3 Lymphocytes % 11.6 Monocytes % 6.9 Eosinophils % 0.0 D Basophils % 0.2 Nucleated RBC % 0 Platelet Estimate Adequate Platelet Comment No clumping noted Sodium Potassium Chloride Carbon Dioxide Anion Gap BUN Creatinine Creat Clearance w eGFR POC Glucometer 269 Random Glucose Calcium Magnesium Iron TIBC Iron Saturation Total Bilirubin AST ALT Alkaline Phosphatase Total Protein Albumin Vitamin B12 Serum Folate Stool Occult Blood Active Medications Generic Name Dose Route Start Last Admin Trade Name Freq PRN Reason Stop Dose Admin Acetaminophen 650 mg 06/14/18 19:08 06/15/18 06:02 Tylenol - PO 650 mg Q6H PRN Administration FEVER Albuterol/Ipratropium 1 amp 06/14/18 18:30 06/16/18 12:38 Duoneb - NEB 1 amp RQID ALEXIA Administration Amlodipine Besylate 10 mg 06/15/18 10:00 06/16/18 09:50 Norvasc - PO 10 mg DAILY ALEXIA Administration Aspirin 81 mg 06/15/18 10:00 06/16/18 09:50 Ecotrin - PO 81 mg DAILY ALEXIA Administration Chlorthalidone 25 mg 06/15/18 10:00 Hygroton - PO DAILY ALEXIA Piperacillin Sod/Tazobactam 50 mls @ 100 mls/hr 06/15/18 18:00 06/16/18 09:49 Sod 2.25 gm/ Dextrose IVPB 100 mls/hr Q8H-IV ALEXIA Administration Protocol Insulin Aspart 1 vial 06/14/18 22:00 06/16/18 11:28 Novolog Vial Sliding Scale - SQ 6 units ACHS ALEXIA Administration Protocol Insulin Detemir 50 units 06/15/18 07:00 06/16/18 06:49 Levemir Vial SQ 50 units DAILY@0700 ALEXIA Administration Losartan Potassium 100 mg 06/15/18 10:00 06/16/18 12:05 Cozaar - PO Not Given DAILY ALEXIA Methylprednisolone Sodium Succinate 40 mg 06/15/18 12:15 06/16/18 09:49 Solu-Medrol - IVPUSH 40 mg Q6H-IV ALEXIA Administration Oseltamivir Phosphate 30 mg 06/14/18 22:00 06/16/18 09:50 Tamiflu - PO 06/19/18 21:59 30 mg BID ALEXIA Administration Pantoprazole Sodium 40 mg 06/15/18 10:00 06/16/18 09:50 Protonix - PO 40 mg DAILY ALEXIA Administration ASSESSMENT/PLAN: The patient is a 77 year old female, with a significant PMH of diabetes mellitus , CAD s/p 5 stents, GERD and hypertension. She presents to the ED with 3 days of congestion, productive cough, green sputum and fever and chills at home. She endorses sore throat and chills. Also had trouble laying flat at night. She is also having dyspnea with any physical exertion. In the ED she was swabbed for the flu and was positive. Initially she was thought to have pneumonia, but chest xray does not support this diagnosis, however, she has scattered rhonchi, wheezing with accessory muscle use. In the ED she received Zosyn and Vancomycin. She will need to be monitored inpatient for flu complications as she is over 65 years, a diabetic and has advanced heart disease. Sepsis: Rule out pneumonia Likely influenza complicated by acute respiratory failure, CT scan shows mild central lobular emphysema with min atelectic changes. Met sepsis criteria on admission, sepsis now resolved. wbc wnl, afebrile On Zosyn renally dosed. Monitor for flu complications (has heart disease-advanced and septic on admission, also age >65 and long hx of diabetes). supplemental oxygen to maintain oxygen >92%. tamiflu 30mg bid x 5 days solumedrol 40mg q6 pulmonary following. Endocrine Diabetes II. on Basaglar, Novolog and metformin 500 bid at home. start on novolog SS, levemir 55 units in a.m. 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 Eduardo Kauffman ([facility]) No chest pain fen tolerating po monitor electrolytes diabetic diet prophy SCDs, heparin full code Visit type - Emergency Visit Emergency Visit: Yes ED Registration Date: 06/14/18 Care time: The patient presented to the Emergency Department on the above date and was hospitalized for further evaluation of their emergent condition. - New Patient This patient is new to me today: No - Critical Care Critical Care patient: No - Discharge Referral Referred to [facility] Med P.C.: No
[2018-06-16] MEDS ORDERED: SODIUM CHLORIDE 1,000 ML IV SCH (13:30)
[2018-06-16] MEDS: HEPARIN NA (PORCINE) 5,000 UNITS/ML 1ML VIAL SQ SCH ×2 (14:38→22:05)
[2018-06-17] MEDS ORDERED: DEXTROSE 5%-WATER - 50 ML IVPB ONE ×2 (01:16→09:34)
[2018-06-17] MEDS ORDERED: PIPERACILLIN/TAZOBACTAM 2.25 GM VIAL IVPB ONE ×2 (01:16→09:34)
[2018-06-17] MEDS: PIPERACILLIN/TAZOB 2.25 GM 2.25 GM in DEXTROSE 5%-WATER - 50 ML IVPB SCH ×2 (01:31→09:47)
[2018-06-17] MEDS: methylPREDNISolone NA SUCC 40 MG/1 ML VIAL IVPUSH SCH ×4 (02:22→21:34)
[2018-06-17] MEDS: INSULIN SLIDING SCALE (NOVOLOG) 1 VIAL SQ SCH ×4 (06:16→22:30)
[2018-06-17] MEDS: INSULIN (LEVEMIR) 100 UNITS/ML UNITS SQ SCH ×2 (06:16→14:37)
[2018-06-17] MEDS: ALBUTEROL SO4 2.5/IPRATROPIUM 0.5 INH SOL 3 ML VIAL.NEB. NEB SCH ×4 (08:06→22:28)
[2018-06-17] MEDS ORDERED: PT OWN MED DRAWER 7, Y5N ONE ×3 (09:34→20:50)
[2018-06-17] MEDS: OSELTAMIVIR PHOSPHATE 30 MG CAPSULE PO SCH ×2 (09:47→21:34)
[2018-06-17] MEDS: HEPARIN NA (PORCINE) 5,000 UNITS/ML 1ML VIAL SQ SCH ×2 (09:47→21:34)
[2018-06-17] MEDS: PANTOPRAZOLE 40 MG TABLET (FP) PO SCH (09:47)
[2018-06-17] MEDS: amLODIPine BESYLATE 10 MG TABLET (FP) PO SCH (09:47)
[2018-06-17] MEDS: ASPIRIN COATED 81 MG TABLET.EC PO SCH (09:47)
[2018-06-17 10:34] LABS: BASO % 0.1 % (0-2.0); HEMATOCRIT 29.9 % (32.4-45.2); HEMOGLOBIN 9.2 GM/dL (10.7-15.3); LYMPH % 11.7 % (8-40); MCHC 30.8 g/dl (32.0-36.0); MEAN CELL VOLUME 63.1 fl (80-96); MEAN PLT VOLUME 9.6 fl (7.5-11.1); MONO % 6.6 % (3.8-10.2); NEUT % 81.6 % (42.8-82.8); PLATELET COUNT 238 K/MM3 (134-434); RBC 4.73 M/mm3 (3.60-5.2); RDW 19.5 % (11.6-15.6); WHITE BLOOD COUNT 9.6 K/mm3 (4.0-10.0)
[2018-06-17 10:37] LABS: MCH 19.5 pg (25.7-33.7)
--- NOTE | 2018-06-17 10:52 | PN ---
Physical Exam: SUBJECTIVE: Patient seen and examined at the bedside. laying in bed, feels better, not wearing oxygen today. tells me her breathing has improved. no chest pain, no shortness of breath. OBJECTIVE: lungs: bilaterally clear on inspiration, left lower lobe with slight exp. wheezing, coughs with expiration: overall, since admission, lungs sounds have improved. on solumedrol taper per pulmonary. hypokalemia and hypocalcemia (corrected 7.7) repleted Vital Signs Period Temp Pulse Resp BP Sys/Spence Pulse Ox Last 24 Hr 97.8 F-98.6 F 58-69 18-18 141-149/58-64 95 GENERAL: Awake, alert, and fully oriented, in no respiratory distress. tolerating room air. HEAD: Normal with no signs of trauma. EYES: Pupils equal, round and reactive to light, extraocular movements intact, sclera anicteric, conjunctiva clear. No lid lag. EARS, NOSE, THROAT: Ears normal, nares patent, oropharynx clear without exudates. Moist mucous membranes. NECK: Normal range of motion, supple without lymphadenopathy, JVD, or masses. LUNGS: wheezing on Left lower lobe, mild scattered rhonchi-improving on steriods HEART: Regular rate and rhythm ABDOMEN: Soft, nontender, not distended, normoactive bowel sounds, no guarding, no rebound, no masses. No hepatomegaly or splenomegaly. MUSCULOSKELETAL: Normal range of motion at all joints. No bony deformities or tenderness. No CVA tenderness. UPPER EXTREMITIES: No peripheral edema. LOWER EXTREMITIES: No peripheral edema. NEUROLOGICAL: Normal speech. PSYCHIATRIC: Cooperative. Good eye contact. Appropriate mood and affect. SKIN: Warm, dry, normal turgor, no rashes or lesions noted, normal capillary refill. Laboratory Results - last 24 hr 06/16/18 06/16/18 06/16/18 09:30 09:30 11:23 WBC RBC Hgb Hct MCV MCH MCHC RDW Plt Count 194 MPV 9.6 Absolute Neuts (auto) Neutrophils % Lymphocytes % Monocytes % Eosinophils % Basophils % Nucleated RBC % Platelet Estimate Adequate Platelet Comment No clumping noted Sodium 138 Potassium 3.8 Chloride 106 Carbon Dioxide 23 Anion Gap 8 BUN 51 H Creatinine 2.8 H Creat Clearance w eGFR 16.30 POC Glucometer 269 Random Glucose 207 H Calcium 7.0 L Magnesium 2.4 Total Bilirubin 0.3 AST 63 H ALT 24 Alkaline Phosphatase 50 Total Protein 6.9 Albumin 2.5 L Vitamin B12 852 Serum Folate 22 H 06/16/18 06/16/18 06/17/18 16:20 21:06 06:08 WBC RBC Hgb Hct MCV MCH MCHC RDW Plt Count MPV Absolute Neuts (auto) Neutrophils % Lymphocytes % Monocytes % Eosinophils % Basophils % Nucleated RBC % Platelet Estimate Platelet Comment Sodium Potassium Chloride Carbon Dioxide Anion Gap BUN Creatinine Creat Clearance w eGFR POC Glucometer 274 287 154 Random Glucose Calcium Magnesium Total Bilirubin AST ALT Alkaline Phosphatase Total Protein Albumin Vitamin B12 Serum Folate 06/17/18 10:21 WBC 9.6 RBC 4.73 Hgb 9.2 L Hct 29.9 L MCV 63.1 L MCH 19.5 L MCHC 30.8 L RDW 19.5 H Plt Count 238 D MPV 9.6 Absolute Neuts (auto) 7.8 Neutrophils % 81.6 Lymphocytes % 11.7 Monocytes % 6.6 Eosinophils % 0.0 Basophils % 0.1 Nucleated RBC % 0 Platelet Estimate Platelet Comment Sodium Potassium Chloride Carbon Dioxide Anion Gap BUN Creatinine Creat Clearance w eGFR POC Glucometer Random Glucose Calcium Magnesium Total Bilirubin AST ALT Alkaline Phosphatase Total Protein Albumin Vitamin B12 Serum Folate Active Medications Generic Name Dose Route Start Last Admin Trade Name Freq PRN Reason Stop Dose Admin Acetaminophen 650 mg 06/14/18 19:08 06/15/18 06:02 Tylenol - PO 650 mg Q6H PRN Administration FEVER Albuterol/Ipratropium 1 amp 06/14/18 18:30 06/17/18 08:06 Duoneb - NEB 1 amp RQID ALEXIA Administration Amlodipine Besylate 10 mg 06/15/18 10:00 06/17/18 09:47 Norvasc - PO 10 mg DAILY ALEXIA Administration Aspirin 81 mg 06/15/18 10:00 06/17/18 09:47 Ecotrin - PO 81 mg DAILY ALEXIA Administration Chlorthalidone 25 mg 06/15/18 10:00 06/17/18 09:47 Hygroton - PO 25 mg DAILY ALEXIA Administration Heparin Sodium (Porcine) 5,000 unit 06/16/18 13:45 06/17/18 09:47 Heparin - SQ 5,000 unit BID ALEXIA Administration Piperacillin Sod/Tazobactam 50 mls @ 100 mls/hr 06/15/18 18:00 06/17/18 09:47 Sod 2.25 gm/ Dextrose IVPB 100 mls/hr Q8H-IV ALEXIA Administration Protocol Sodium Chloride 1,000 mls @ 42 mls/hr 06/16/18 13:30 06/16/18 14:41 Normal Saline - IV 42 mls/hr ASDIR ALEXIA Administration Insulin Aspart 1 vial 06/14/18 22:00 06/17/18 06:16 Novolog Vial Sliding Scale - SQ 2 units ACHS ALEXIA Administration Protocol Insulin Detemir 50 units 06/15/18 07:00 06/17/18 06:16 Levemir Vial SQ 50 units DAILY@0700 ALEXIA Administration Losartan Potassium 100 mg 06/15/18 10:00 06/16/18 12:05 Cozaar - PO Not Given DAILY ALEXIA Methylprednisolone Sodium Succinate 40 mg 06/15/18 12:15 06/17/18 09:47 Solu-Medrol - IVPUSH 40 mg Q6H-IV ALEXIA Administration Oseltamivir Phosphate 30 mg 06/14/18 22:00 06/17/18 09:47 Tamiflu - PO 06/19/18 21:59 30 mg BID ALEXIA Administration Pantoprazole Sodium 40 mg 06/15/18 10:00 06/17/18 09:47 Protonix - PO 40 mg DAILY ALEXIA Administration ASSESSMENT/PLAN: The patient is a 77 year old female, with a significant PMH of diabetes mellitus , CAD s/p 5 stents, GERD and hypertension. She presents to the ED with 3 days of congestion, productive cough, green sputum and fever and chills at home. She endorses sore throat and chills. Also had trouble laying flat at night. She is also having dyspnea with any physical exertion. In the ED she was swabbed for the flu and was positive. Initially she was thought to have pneumonia, but chest xray does not support this diagnosis, however, she has scattered rhonchi, wheezing with accessory muscle use. In the ED she received Zosyn and Vancomycin. She will need to be monitored inpatient for flu complications as she is over 65 years, a diabetic and has advanced heart disease. Sepsis: Influenza A complicated by acute respiratory failure 2/2 to acute asthma exacerbation. CT scan shows mild central lobular emphysema with min atelectic changes. Met sepsis criteria on admission, sepsis now resolved. wbc wnl, afebrile On Zosyn renally dosed as initial thought was patient had a possible pneumonia Monitor for flu complications (has advanced heart disease and septic on admission, also age >65 with long hx of uncontrolled diabetes). supplemental oxygen to maintain oxygen >92%. tamiflu 30mg bid x 5 days solumedrol 40mg q6 pulmonary following. Endocrine Diabetes II. on Basaglar, Novolog and metformin 500 bid at home. start on novolog SS, levemir 55 units in a.m., maintain pre meal glucose <180 in the setting of steriods Assess the need for metformin at home on d/c as patient has low GFR Renal Creat trending up, currently 2.7 renal u/s shows not hydro, but a non obstructing stone is seen renal following, recommendations noted Card: CAD s/p 5 stents on ASA therapy Echo ordered and pending She has a brand advocate Dr. Eduardo Kauffman ([facility]) No chest pain fen tolerating po monitor electrolytes diabetic diet prophy SCDs, heparin full code Visit type - Emergency Visit Emergency Visit: Yes ED Registration Date: 06/14/18 Care time: The patient presented to the Emergency Department on the above date and was hospitalized for further evaluation of their emergent condition. - New Patient This patient is new to me today: No - Critical Care Critical Care patient: No - Discharge Referral Referred to [facility] Med P.C.: No
[2018-06-17 11:23] LABS: ALBUMIN 2.8 g/dl (3.4-5.0); ALK PHOS 50 U/L (45-117); ANION GAP 11 MMOL/L (8-16); BILIRUBIN,TOTAL 0.2 mg/dL (0.2-1); BLOOD UREA NITROGEN 58 mg/dL (7-18); CHLORIDE 108 mmol/L (98-107); CO2 22 mmol/L (21-32); CREATININE 2.7 mg/dL (0.55-1.3); GLUCOSE,RANDOM 208 mg/dL (74-106); MAGNESIUM 2.6 mg/dL (1.8-2.4); POTASSIUM 3.3 mmol/L (3.5-5.1); SGOT/AST 42 U/L (15-37); SGPT/ALT 24 U/L (13-61); SODIUM 141 mmol/L (136-145); TOT PROT 6.9 g/dl (6.4-8.2)
--- NOTE | 2018-06-17 11:28 | PN ---
Progress Note (short form) - Note Progress Note: PULMONARY States breathing is improving but still with cough and wheezing. No fevers. Vital Signs Period Temp Pulse Resp BP Sys/Spence Pulse Ox Last 24 Hr 97.8 F-98.6 F 58-69 18-18 141-149/58-64 95 Gen: NAD with frequent coughing Heart: RRR Lung: scattered rhonchi, wheezes Abd: soft, nontender Ext: no edema CBC, BMP 06/17/18 10:21 06/17/18 10:21 Active Medications Acetaminophen (Tylenol -) 650 mg PO Q6H PRN PRN Reason: FEVER Last Admin: 06/15/18 06:02 Dose: 650 mg Albuterol/Ipratropium (Duoneb -) 1 amp NEB RQID [facility] Last Admin: 06/17/18 08:06 Dose: 1 amp Amlodipine Besylate (Norvasc -) 10 mg PO DAILY [facility] Last Admin: 06/17/18 09:47 Dose: 10 mg Aspirin (Ecotrin -) 81 mg PO DAILY [facility] Last Admin: 06/17/18 09:47 Dose: 81 mg Chlorthalidone (Hygroton -) 25 mg PO DAILY [facility] Last Admin: 06/17/18 09:47 Dose: 25 mg Heparin Sodium (Porcine) (Heparin -) 5,000 unit SQ BID [facility] Last Admin: 06/17/18 09:47 Dose: 5,000 unit Piperacillin Sod/Tazobactam (Sod 2.25 gm/ Dextrose) 50 mls @ 100 mls/hr IVPB Q8H-IV ALEXIA; Protocol Last Admin: 06/17/18 09:47 Dose: 100 mls/hr Sodium Chloride (Normal Saline -) 1,000 mls @ 42 mls/hr IV ASDIR [facility] Last Admin: 06/16/18 14:41 Dose: 42 mls/hr Insulin Aspart (Novolog Vial Sliding Scale -) 1 vial SQ ACHS [facility]; Protocol Last Admin: 06/17/18 06:16 Dose: 2 units Insulin Detemir (Levemir Vial) 50 units SQ DAILY@0700 [facility] Last Admin: 06/17/18 06:16 Dose: 50 units Methylprednisolone Sodium Succinate (Solu-Medrol -) 40 mg IVPUSH BID [facility] Oseltamivir Phosphate (Tamiflu -) 30 mg PO BID [facility] Stop: 06/19/18 21:59 Last Admin: 06/17/18 09:47 Dose: 30 mg Pantoprazole Sodium (Protonix -) 40 mg PO DAILY [facility] Last Admin: 06/17/18 09:47 Dose: 40 mg Potassium Chloride (K-Dur -) 40 meq PO ONCE ONE Stop: 06/17/18 11:26 Ranitidine HCl (Zantac -) 150 mg PO DAILY [facility] A/P Influenza A Acute Asthma Exacerbation CAD Acute on Chronic Renal Failure DM - continue tamiflu - continue medrol at current dose - inhaled bronchodilators - O2 to keep SpO2 >90% - IVF - monitor urine output, creatinine - replete lytes - DVT prophylaxis
[2018-06-17] MEDS ORDERED: POTASSIUM CHLORIDE TABS 20 MEQ TABLET.ER (FP) PO ONE (11:30)
[2018-06-17 11:45] LABS: CALCIUM 6.7 mg/dL (8.5-10.1)
[2018-06-17] MEDS ORDERED: INSULIN (NOVOLOG) ASPART 100 UNITS/ML 10ML VIAL ONE (11:51)
--- NOTE | 2018-06-17 12:28 | CONSULT ---
Consult - text type - Consultation Consultation Note: Renal Consult for ESTELA This is a 77 year old woman with hx of hypertension, DM, CAD s/p PCI who presented with complaints of cough and found to have influenza and developed ESTELA during the hospitalization. Denies any hx of CKD, kidney stones or recurrent UTI's. Pt did not have any contrast exposure this admission. No overt hypotension noted. No skin rash, flank pain, BARRIOS, confuison, N/V/D. Continues to have cough. PMhx: as above Allergies: NKDA Family Hx: NC Social Hx: No T/A/D ROS: as per HPI, all other pertinent ros negative Home Medications Medication Instructions Recorded Unobtainable 06/14/18 Vital Signs Temperature 97.6 F 06/17/18 09:00 Pulse Rate 65 06/17/18 09:00 Respiratory Rate 20 06/17/18 09:00 Blood Pressure 168/79 06/17/18 09:00 O2 Sat by Pulse Oximetry (%) 95 06/16/18 21:00 Intake & Output 06/14/18 06/15/18 06/16/18 06/17/18 23:59 23:59 23:59 23:59 Intake Total 0 700 950 Balance 0 700 950 Weight 74.525 kg NAD awake and alert neck supple, no JVD RRR, no M/R CTA, no rales or wheeze soft NT/ND no LE edema no rash on skin no bladder distension no focal neurologic deficits CBC, BMP 06/17/18 10:21 06/17/18 10:21 Current Medications Acetaminophen (Tylenol -) 650 mg PO Q6H PRN PRN Reason: FEVER Last Admin: 06/15/18 06:02 Dose: 650 mg Albuterol/Ipratropium (Duoneb -) 1 amp NEB RQID [facility] Last Admin: 06/17/18 08:06 Dose: 1 amp Amlodipine Besylate (Norvasc -) 10 mg PO DAILY [facility] Last Admin: 06/17/18 09:47 Dose: 10 mg Aspirin (Ecotrin -) 81 mg PO DAILY [facility] Last Admin: 06/17/18 09:47 Dose: 81 mg Calcium Carbonate (Os-Arron 500mg -) 500 mg PO BID [facility] Chlorthalidone (Hygroton -) 25 mg PO DAILY [facility] Last Admin: 06/17/18 09:47 Dose: 25 mg Heparin Sodium (Porcine) (Heparin -) 5,000 unit SQ BID [facility] Last Admin: 06/17/18 09:47 Dose: 5,000 unit Piperacillin Sod/Tazobactam (Sod 2.25 gm/ Dextrose) 50 mls @ 100 mls/hr IVPB Q8H-IV [facility]; Protocol Last Admin: 06/17/18 09:47 Dose: 100 mls/hr Sodium Chloride (Normal Saline -) 1,000 mls @ 42 mls/hr IV ASDIR [facility] Last Admin: 06/16/18 14:41 Dose: 42 mls/hr Insulin Aspart (Novolog Vial Sliding Scale -) 1 vial SQ ACHS [facility]; Protocol Last Admin: 06/17/18 11:52 Dose: 4 units Insulin Detemir (Levemir Vial) 50 units SQ DAILY@0700 [facility] Last Admin: 06/17/18 06:16 Dose: 50 units Methylprednisolone Sodium Succinate (Solu-Medrol -) 40 mg IVPUSH Q6H-IV [facility] Multivitamins/Minerals/Vitamin C (Tab-A-Vit -) 1 tab PO DAILY [facility] Oseltamivir Phosphate (Tamiflu -) 30 mg PO BID [facility] Stop: 06/19/18 21:59 Last Admin: 06/17/18 09:47 Dose: 30 mg Pantoprazole Sodium (Protonix -) 40 mg PO DAILY [facility] Last Admin: 06/17/18 09:47 Dose: 40 mg Ranitidine HCl (Zantac -) 150 mg PO DAILY [facility] 77 year old woman with hx of hypertension, DM, CAD s/p PCI who presented with complaints of cough and found to have influenza and developed ESTELA during the hospitalization. #ESTELA r/o AIN from Abx vs. normotensive ATN vs. volume depletion in setting of infetion vs. legionella infection #Influenza #Asthma exacerbation #Hypertension #DM #CAD s/p PCI check urine studies for FeUrea, UCPR, Urine Eosinphils and urinary legionella antigen continue isotonic saline, increase rate to 83cc per hour hold ARB/YESI and diuretic for now consider change in Abx to non-PCN abx trend renal function, serum eosinophils hold PPI, start zantac as PPI can cause AIN as well continue norvasc ID follow up Thank you Will follow Bhargav Vences DO
--- NOTE | 2018-06-17 13:01 | PN ---
Progress Note, Physician History of Present Illness: patient stable looking much better creatinine still higher - Current Medication List Current Medications: Active Medications Acetaminophen (Tylenol -) 650 mg PO Q6H PRN PRN Reason: FEVER Last Admin: 06/15/18 06:02 Dose: 650 mg Albuterol/Ipratropium (Duoneb -) 1 amp NEB RQID [facility] Last Admin: 06/17/18 12:00 Dose: 1 amp Amlodipine Besylate (Norvasc -) 10 mg PO DAILY [facility] Last Admin: 06/17/18 09:47 Dose: 10 mg Aspirin (Ecotrin -) 81 mg PO DAILY [facility] Last Admin: 06/17/18 09:47 Dose: 81 mg Calcium Carbonate (Os-Arron 500mg -) 500 mg PO BID [facility] Chlorthalidone (Hygroton -) 25 mg PO DAILY [facility] Last Admin: 06/17/18 09:47 Dose: 25 mg Heparin Sodium (Porcine) (Heparin -) 5,000 unit SQ BID [facility] Last Admin: 06/17/18 09:47 Dose: 5,000 unit Sodium Chloride (Normal Saline -) 1,000 mls @ 83 mls/hr IV ASDIR [facility] Insulin Aspart (Novolog Vial Sliding Scale -) 1 vial SQ ACHS [facility]; Protocol Last Admin: 06/17/18 11:52 Dose: 4 units Insulin Detemir (Levemir Vial) 50 units SQ DAILY@0700 [facility] Last Admin: 06/17/18 06:16 Dose: 50 units Methylprednisolone Sodium Succinate (Solu-Medrol -) 40 mg IVPUSH Q6H-IV [facility] Multivitamins/Minerals/Vitamin C (Tab-A-Vit -) 1 tab PO DAILY [facility] Oseltamivir Phosphate (Tamiflu -) 30 mg PO BID [facility] Stop: 06/19/18 21:59 Last Admin: 06/17/18 09:47 Dose: 30 mg Ranitidine HCl (Zantac -) 150 mg PO DAILY [facility] - Objective Vital Signs: Vital Signs Temperature 97.6 F 06/17/18 09:00 Pulse Rate 65 06/17/18 09:00 Respiratory Rate 20 06/17/18 09:00 Blood Pressure 168/79 06/17/18 09:00 O2 Sat by Pulse Oximetry (%) 95 06/16/18 21:00 Constitutional: Yes: Calm, Mild Distress, Obese Cardiovascular: Yes: Regular Rate and Rhythm Respiratory: Yes: Regular, Poor Air Entry, Other Gastrointestinal: Yes: Normal Bowel Sounds, Soft Musculoskeletal: Yes: WNL Extremities: Yes: WNL Neurological: Yes: Alert, Oriented Psychiatric: Yes: Alert, Oriented Labs: CBC, BMP 06/17/18 10:21 06/17/18 10:21 Assessment/Plan 77 year old female, with a significant PMH of diabetes mellitus, CAD s/p 5 stents, GERD and hypertension this patient with multiple medical problems r/o pneumonia r/o chf influenza weakness plan will change abx to ceftriaxone d/w nephro monitor renal function rest as per the team
[2018-06-17] MEDS ORDERED: CEFTRIAXONE 1 GM in DEXTROSE 5%-WATER 100 ML IVPB SCH (13:15)
[2018-06-17] MEDS: MULTIVITAMINS (DAILY MVI) TABLET (FP) PO SCH (13:20)
[2018-06-17] MEDS: SODIUM CHLORIDE 1,000 ML IV SCH ×2 (13:21→21:33)
--- NOTE | 2018-06-17 14:01 | ECHO ---
Name: SILVERIO ELLIS, DEE Exam:Adult Echocardiogram Study Date: 06/17/2018 08:47 AM Age: 77 yrs Reason For Study: CHF Height: 58 in Weight: 164 lb BSA: 1.7 m2 MMode/2D Measurements & Calculations IVSd: 1.0 cm Ao root diam: 2.4 cm LVIDd: 4.7 cm LA dimension: 2.9 cm LVIDs: 2.6 cm LVPWd: 1.4 cm EDV(Teich): 102.9 ml LVOT diam: 2.0 cm ESV(Teich): 24.7 ml Doppler Measurements & Calculations MV E max cuong: 104.0 cm/sec Ao V2 max: 197.5 cm/sec MV A max cuong: 75.7 cm/sec Ao max P.7 mmHg MV E/A: 1.4 Ao V2 mean: 130.4 cm/sec MV dec time: 0.14 sec Ao mean P.1 mmHg Ao V2 VTI: 47.1 cm MARIA FERNANDA(I,D): 1.7 cm2 MARIA FERNANDA(V,D): 1.5 cm2 LV V1 max P.0 mmHg SV(LVOT): 77.9 ml LV V1 mean P.2 mmHg LV V1 max: 99.7 cm/sec LV V1 mean: 69.1 cm/sec LV V1 VTI: 25.4 cm TR max cuong: 288.2 cm/sec PA V2 max: 112.7 cm/sec TR max P.9 mmHg PA max P.1 mmHg Med Peak E' Cuong: 6.6 cm/sec Med E/e': 15.7 Lat Peak E' Cuong: 5.4 cm/sec Lat E/e': 19.1 Procedure A complete two-dimensional transthoracic echocardiogram was performed (2D, M-mode, Doppler and color flow Doppler). Technically limited study. Left Ventricle The left ventricle is normal in size. Left ventricular systolic function is normal. Ejection Fraction = >70%. Diastolic dysfunction, Grade II (pseudonormalization pattern). Ratio E/E'= 16. No regional wall motio n abnormalities noted. Right Ventricle The right ventricle is normal size. The right ventricular systolic function is normal. Atria The left atrial size is normal. Right atrial size is normal. Mitral Valve There is mild mitral annular calcification. There is no mitral regurgitation noted. Tricuspid Valve The tricuspid valve is not well visualized, but is grossly normal. There is mild to moderate tricuspi d regurgitation. Pulmonary artery systolic pressure is at least 25 mmHg assuming RA pressure of 3 mmHg. Aortic Valve There is mild aortic sclerosis.;. No aortic regurgitation is present. Pulmonic Valve The pulmonic valve is not well visualized. Great Vessels The aortic root is normal size. Pericardium/Pleura There is no pericardial effusion. Interpretation Summary Technically limited study The left ventricle is normal in size. Left ventricular systolic function is normal. No regional wall motion abnormalities noted. Ejection Fraction = >70%. Diastolic dysfunction, Grade II (pseudonormalization pattern). Ratio E/E'= 16 The right ventricular systolic function is normal. The left atrial size is normal. Right atrial size is normal. There is mild mitral annular calcification. There is mild to moderate tricuspid regurgitation. Pulmonary artery systolic pressure is at least 25 mmHg assuming RA pressure of 3 mmHg There is mild aortic sclerosis. There is no pericardial effusion. Previous study is not available for comparison Leopoldo Card MD 06/17/2018 02:00 PM
[2018-06-17] MEDS: CALCIUM (OYSTER SHELL) 500 MG TABLET (FP) PO SCH ×2 (15:06→21:34)
[2018-06-17] MEDS ORDERED: methylPREDNISolone NA SUCC 40 MG/1 ML VIAL IVPUSH SCH (22:00)
[2018-06-18] MEDS: methylPREDNISolone NA SUCC 40 MG/1 ML VIAL IVPUSH SCH ×3 (03:10→17:14)
[2018-06-18] MEDS: INSULIN SLIDING SCALE (NOVOLOG) 1 VIAL SQ SCH ×4 (06:36→22:50)
[2018-06-18] MEDS: INSULIN (LEVEMIR) 100 UNITS/ML UNITS SQ SCH (06:55)
[2018-06-18 07:17] LABS: BASO % 0.1 % (0-2.0); HEMATOCRIT 30.1 % (32.4-45.2); HEMOGLOBIN 9.2 GM/dL (10.7-15.3); LYMPH % 16.5 % (8-40); MCHC 30.6 g/dl (32.0-36.0); MEAN CELL VOLUME 63.2 fl (80-96); MEAN PLT VOLUME 9.5 fl (7.5-11.1); MONO % 5.1 % (3.8-10.2); NEUT % 78.3 % (42.8-82.8); PLATELET COUNT 246 K/MM3 (134-434); RBC 4.75 M/mm3 (3.60-5.2); RDW 19.3 % (11.6-15.6)
[2018-06-18 07:54] LABS: ALBUMIN 2.6 g/dl (3.4-5.0); ALK PHOS 48 U/L (45-117); ANION GAP 10 MMOL/L (8-16); BILIRUBIN,TOTAL 0.2 mg/dL (0.2-1); BLOOD UREA NITROGEN 54 mg/dL (7-18); CHLORIDE 115 mmol/L (98-107); CO2 21 mmol/L (21-32); CREATININE 2.1 mg/dL (0.55-1.3); GLUCOSE,RANDOM 120 mg/dL (74-106); MAGNESIUM 2.8 mg/dL (1.8-2.4); PHOSPHOROUS 3.3 mg/dL (2.5-4.9); POTASSIUM 3.5 mmol/L (3.5-5.1); SGOT/AST 29 U/L (15-37); SGPT/ALT 23 U/L (13-61); SODIUM 145 mmol/L (136-145); TOT PROT 6.4 g/dl (6.4-8.2)
[2018-06-18 07:59] LABS: MCH 19.4 pg (25.7-33.7)
[2018-06-18] MEDS: ALBUTEROL SO4 2.5/IPRATROPIUM 0.5 INH SOL 3 ML VIAL.NEB. NEB SCH ×4 (08:01→21:08)
[2018-06-18] MEDS: ACETAMINOPHEN 325 MG TABLET (FP) PO PRN (08:18)
[2018-06-18 08:23] LABS: CALCIUM 6.8 mg/dL (8.5-10.1)
--- NOTE | 2018-06-18 09:02 | PN ---
Physical Exam: SUBJECTIVE: Patient seen and examined. She denies SOB. She says she has a cough with white sputum. OBJECTIVE: Vital Signs Period Temp Pulse Resp BP Sys/Spence Pulse Ox Last 24 Hr 97.6 F-98.5 F 60-68 20-20 143-168/67-79 96-96 GENERAL: The patient is awake, alert, and fully oriented, in no acute distress. LUNGS: Breath sounds equal, scattered rhonchi. HEART: Regular rate and rhythm, S1, S2 without murmur, rub or gallop. ABDOMEN: Obese, soft, nontender, nondistended, normoactive bowel sounds, no guarding, no rebound, no hepatosplenomegaly, no masses. EXTREMITIES: 2+ pulses, warm, well-perfused, no edema. Laboratory Results - last 24 hr 06/17/18 06/17/18 06/17/18 10:21 10:21 11:35 WBC 9.6 RBC 4.73 Hgb 9.2 L Hct 29.9 L MCV 63.1 L MCH 19.5 L MCHC 30.8 L RDW 19.5 H Plt Count 238 D MPV 9.6 Absolute Neuts (auto) 7.8 Neutrophils % 81.6 Lymphocytes % 11.7 Monocytes % 6.6 Eosinophils % 0.0 Basophils % 0.1 Nucleated RBC % 0 Sodium 141 Potassium 3.3 L Chloride 108 H Carbon Dioxide 22 Anion Gap 11 BUN 58 H Creatinine 2.7 H Creat Clearance w eGFR 17.00 POC Glucometer 205 Random Glucose 208 H Calcium 6.7 L* Phosphorus Magnesium 2.6 H Total Bilirubin 0.2 AST 42 H ALT 24 Alkaline Phosphatase 50 Total Protein 6.9 Albumin 2.8 L 06/17/18 06/17/18 06/18/18 17:06 22:00 05:50 WBC RBC Hgb Hct MCV MCH MCHC RDW Plt Count MPV Absolute Neuts (auto) Neutrophils % Lymphocytes % Monocytes % Eosinophils % Basophils % Nucleated RBC % Sodium Potassium Chloride Carbon Dioxide Anion Gap BUN Creatinine Creat Clearance w eGFR POC Glucometer 237 187 122 Random Glucose Calcium Phosphorus Magnesium Total Bilirubin AST ALT Alkaline Phosphatase Total Protein Albumin 06/18/18 06/18/18 06:30 06:30 WBC 9.0 RBC 4.75 Hgb 9.2 L Hct 30.1 L MCV 63.2 L MCH 19.4 L MCHC 30.6 L RDW 19.3 H Plt Count 246 MPV 9.5 Absolute Neuts (auto) 7.0 Neutrophils % 78.3 Lymphocytes % 16.5 D Monocytes % 5.1 Eosinophils % 0.0 Basophils % 0.1 Nucleated RBC % 0 Sodium 145 Potassium 3.5 Chloride 115 H Carbon Dioxide 21 Anion Gap 10 BUN 54 H Creatinine 2.1 H Creat Clearance w eGFR 22.72 POC Glucometer Random Glucose 120 H Calcium 6.8 L* Phosphorus 3.3 Magnesium 2.8 H Total Bilirubin 0.2 AST 29 ALT 23 Alkaline Phosphatase 48 Total Protein 6.4 Albumin 2.6 L Active Medications Generic Name Dose Route Start Last Admin Trade Name Freq PRN Reason Stop Dose Admin Acetaminophen 650 mg 06/14/18 19:08 06/18/18 08:18 Tylenol - PO 650 mg Q6H PRN Administration FEVER Albuterol/Ipratropium 1 amp 06/14/18 18:30 06/18/18 08:01 Duoneb - NEB 1 amp RQID [facility] Administration Amlodipine Besylate 10 mg 06/15/18 10:00 06/17/18 09:47 Norvasc - PO 10 mg DAILY [facility] Administration Aspirin 81 mg 06/15/18 10:00 06/17/18 09:47 Ecotrin - PO 81 mg DAILY [facility] Administration Calcium Carbonate 500 mg 06/17/18 12:00 06/17/18 21:34 Os-Arron 500mg - PO 500 mg BID [facility] Administration Heparin Sodium (Porcine) 5,000 unit 06/16/18 13:45 06/17/18 21:34 Heparin - SQ 5,000 unit BID [facility] Administration Sodium Chloride 1,000 mls @ 83 mls/hr 06/17/18 12:28 06/17/18 21:33 Normal Saline - IV 83 mls/hr ASDIR [facility] Administration Ceftriaxone Sodium 1 gm/ 50 mls @ 200 mls/hr 06/17/18 13:15 Dextrose IVPB DAILY [facility] Protocol Insulin Aspart 1 vial 06/17/18 16:30 06/18/18 06:36 Novolog Vial Sliding Scale - SQ Not Given ACHS [facility] Protocol Insulin Detemir 55 units 06/17/18 13:30 06/18/18 06:55 Levemir Vial SQ 55 units DAILY@0700 [facility] Administration Methylprednisolone Sodium Succinate 40 mg 06/17/18 15:00 06/18/18 03:10 Solu-Medrol - IVPUSH 40 mg Q6H-IV [facility] Administration Multivitamins/Minerals/Vitamin C 1 tab 06/17/18 12:00 06/17/18 13:20 Tab-A-Vit - PO 1 tab DAILY [facility] Administration Oseltamivir Phosphate 30 mg 06/14/18 22:00 06/17/18 21:34 Tamiflu - PO 06/19/18 21:59 30 mg BID [facility] Administration Ranitidine HCl 150 mg 06/18/18 10:00 Zantac - PO DAILY [facility] ASSESSMENT/PLAN: This is a 77 year old woman with a history of HTN, CAD with stents, type 2 DM, GERD who presented to the ED with fever, cough, and SOB. 1. Sepsis secondary to influenza A, possible pneumonia - Continue Tamiflu, ceftriaxone 2. Acute asthma exacerbation - Continue SoluMedrol, DuoNeb 3. Acute kidney injury - Creatinine improving - Continue to hold Cozaar, Chlorthalidone - Continue IV fluid 4. Type 2 DM - Basaglar, metformin held - Continue Levemir, Novolog sliding scale 5. HTN - Continue Norvasc - Cozaar, Chlorthalidone held secondary to ESTELA 6. CAD, history of stents - Continue aspirin 7. GERD - Continue Zantac Visit type - Emergency Visit Emergency Visit: Yes ED Registration Date: 06/14/18 Care time: The patient presented to the Emergency Department on the above date and was hospitalized for further evaluation of their emergent condition. - New Patient This patient is new to me today: Yes Date on this admission: 06/18/18 - Critical Care Critical Care patient: No - Discharge Referral Referred to [facility] Med P.C.: No
[2018-06-18] MEDS ORDERED: PT OWN MED DRAWER 7, Y5N ONE ×2 (09:47→22:22)
[2018-06-18] MEDS ORDERED: DEXTROSE 5%-WATER - 50 ML IVPB ONE (09:48)
[2018-06-18] MEDS ORDERED: cefTRIAXone SODIUM 1 GM VIAL ONE (09:48)
[2018-06-18] MEDS: CEFTRIAXONE 1 GM in DEXTROSE 5%-WATER - 50 ML IVPB SCH (09:52)
[2018-06-18] MEDS: amLODIPine BESYLATE 10 MG TABLET (FP) PO SCH (09:59)
[2018-06-18] MEDS: RANITIDINE HCL 150 MG TABLET (FP) PO SCH (09:59)
[2018-06-18] MEDS: HEPARIN NA (PORCINE) 5,000 UNITS/ML 1ML VIAL SQ SCH ×2 (09:59→22:32)
[2018-06-18] MEDS: ASPIRIN COATED 81 MG TABLET.EC PO SCH (09:59)
[2018-06-18] MEDS: OSELTAMIVIR PHOSPHATE 30 MG CAPSULE PO SCH ×2 (09:59→22:36)
[2018-06-18] MEDS: MULTIVITAMINS (DAILY MVI) TABLET (FP) PO SCH (09:59)
[2018-06-18] MEDS: CALCIUM (OYSTER SHELL) 500 MG TABLET (FP) PO SCH ×2 (09:59→22:35)
[2018-06-18] MEDS: SODIUM CHLORIDE 1,000 ML IV SCH ×3 (10:00→22:44)
--- NOTE | 2018-06-18 10:27 | PN ---
Progress Note (short form) - Note Progress Note: PULMONARY States breathing is improving, less cough and wheezing. No fevers. Vital Signs Period Temp Pulse Resp BP Sys/Spence Pulse Ox Last 24 Hr 98.3 F-98.5 F 60-71 20-20 138-158/66-71 96 Gen: NAD with less frequent coughing Heart: RRR Lung: scattered rhonchi, wheezes Abd: soft, nontender Ext: no edema CBC, BMP 06/18/18 06:30 06/18/18 06:30 Active Medications Acetaminophen (Tylenol -) 650 mg PO Q6H PRN PRN Reason: FEVER Last Admin: 06/18/18 08:18 Dose: 650 mg Albuterol/Ipratropium (Duoneb -) 1 amp NEB RQID [facility] Last Admin: 06/18/18 08:01 Dose: 1 amp Amlodipine Besylate (Norvasc -) 10 mg PO DAILY [facility] Last Admin: 06/18/18 09:59 Dose: 10 mg Aspirin (Ecotrin -) 81 mg PO DAILY [facility] Last Admin: 06/18/18 09:59 Dose: 81 mg Calcium Carbonate (Os-Arron 500mg -) 500 mg PO BID [facility] Last Admin: 06/18/18 09:59 Dose: 500 mg Heparin Sodium (Porcine) (Heparin -) 5,000 unit SQ BID [facility] Last Admin: 06/18/18 09:59 Dose: 5,000 unit Sodium Chloride (Normal Saline -) 1,000 mls @ 83 mls/hr IV ASDIR [facility] Last Admin: 06/18/18 10:00 Dose: 83 mls/hr Ceftriaxone Sodium 1 gm/ (Dextrose) 50 mls @ 200 mls/hr IVPB DAILY [facility]; Protocol Last Admin: 06/18/18 09:52 Dose: 200 mls/hr Insulin Aspart (Novolog Vial Sliding Scale -) 1 vial SQ ACHS [facility]; Protocol Last Admin: 06/18/18 06:36 Dose: Not Given Insulin Detemir (Levemir Vial) 55 units SQ DAILY@0700 [facility] Last Admin: 06/18/18 06:55 Dose: 55 units Methylprednisolone Sodium Succinate (Solu-Medrol -) 40 mg IVPUSH Q6H-IV [facility] Last Admin: 06/18/18 09:59 Dose: 40 mg Multivitamins/Minerals/Vitamin C (Tab-A-Vit -) 1 tab PO DAILY [facility] Last Admin: 06/18/18 09:59 Dose: 1 tab Oseltamivir Phosphate (Tamiflu -) 30 mg PO BID [facility] Stop: 06/19/18 21:59 Last Admin: 06/18/18 09:59 Dose: 30 mg Ranitidine HCl (Zantac -) 150 mg PO DAILY [facility] Last Admin: 06/18/18 09:59 Dose: 150 mg A/P Influenza A Acute Asthma Exacerbation CAD Acute on Chronic Renal Failure DM - complete tamiflu - will decrease medrol to q8h - inhaled bronchodilators - O2 to keep SpO2 >90% - IVF - monitor urine output, creatinine - replete lytes - DVT prophylaxis
[2018-06-18] MEDS ORDERED: INSULIN (NOVOLOG) ASPART 100 UNITS/ML 10ML VIAL ONE (11:36)
[2018-06-18 12:54] LABS: ANISOCYTOSIS 2+; HELMET CELLS 1+; MACROCYTOSIS 0; PLATELET ESTIMATE NORMAL; TARGET CELLS 1+; TEAR DROP CELLS 1+
--- NOTE | 2018-06-18 14:01 | PN ---
Progress Note, Physician History of Present Illness: better but still coughing tick yellow sputum - Current Medication List Current Medications: Active Medications Acetaminophen (Tylenol -) 650 mg PO Q6H PRN PRN Reason: FEVER Last Admin: 06/18/18 08:18 Dose: 650 mg Albuterol/Ipratropium (Duoneb -) 1 amp NEB RQID [facility] Last Admin: 06/18/18 12:26 Dose: 1 amp Amlodipine Besylate (Norvasc -) 10 mg PO DAILY [facility] Last Admin: 06/18/18 09:59 Dose: 10 mg Aspirin (Ecotrin -) 81 mg PO DAILY [facility] Last Admin: 06/18/18 09:59 Dose: 81 mg Calcium Carbonate (Os-Arron 500mg -) 500 mg PO BID [facility] Last Admin: 06/18/18 09:59 Dose: 500 mg Heparin Sodium (Porcine) (Heparin -) 5,000 unit SQ BID [facility] Last Admin: 06/18/18 09:59 Dose: 5,000 unit Sodium Chloride (Normal Saline -) 1,000 mls @ 83 mls/hr IV ASDIR [facility] Last Admin: 06/18/18 10:00 Dose: 83 mls/hr Ceftriaxone Sodium 1 gm/ (Dextrose) 50 mls @ 200 mls/hr IVPB DAILY [facility]; Protocol Last Admin: 06/18/18 09:52 Dose: 200 mls/hr Insulin Aspart (Novolog Vial Sliding Scale -) 1 vial SQ ACHS [facility]; Protocol Last Admin: 06/18/18 11:41 Dose: 8 units Insulin Detemir (Levemir Vial) 55 units SQ DAILY@0700 [facility] Last Admin: 06/18/18 06:55 Dose: 55 units Methylprednisolone Sodium Succinate (Solu-Medrol -) 40 mg IVPUSH Q8H [facility] Multivitamins/Minerals/Vitamin C (Tab-A-Vit -) 1 tab PO DAILY [facility] Last Admin: 06/18/18 09:59 Dose: 1 tab Oseltamivir Phosphate (Tamiflu -) 30 mg PO BID [facility] Stop: 06/19/18 21:59 Last Admin: 06/18/18 09:59 Dose: 30 mg Ranitidine HCl (Zantac -) 150 mg PO DAILY [facility] Last Admin: 06/18/18 09:59 Dose: 150 mg - Objective Vital Signs: Vital Signs Temperature 98.3 F 06/18/18 13:42 Pulse Rate 73 04/09/19 13:42 Respiratory Rate 20 06/18/18 09:00 Blood Pressure 152/61 06/18/18 13:42 O2 Sat by Pulse Oximetry (%) 97 06/18/18 09:00 Constitutional: Yes: No Distress, Calm Cardiovascular: Yes: Regular Rate and Rhythm Respiratory: Yes: Regular, CTA Bilaterally Gastrointestinal: Yes: Normal Bowel Sounds, Soft Musculoskeletal: Yes: WNL Extremities: Yes: WNL Neurological: Yes: Alert, Oriented Psychiatric: Yes: Alert, Oriented Labs: CBC, BMP 06/18/18 06:30 06/18/18 06:30 Assessment/Plan 77 year old female, with a significant PMH of diabetes mellitus, CAD s/p 5 stents, GERD and hypertension this patient with multiple medical problems r/o pneumonia r/o chf influenza weakness plan continue abx incentive meet rest as per the team
--- NOTE | 2018-06-18 16:36 | PN ---
Progress Note (short form) - Note Progress Note: Renal follow up for ESTELA Pt seen and examined at the bedside feels better no sob, cp, abd pain, N/V/D making urine Vital Signs Temperature 98.3 F 06/18/18 13:42 Pulse Rate 73 06/18/18 13:42 Respiratory Rate 20 06/18/18 09:00 Blood Pressure 152/61 06/18/18 13:42 O2 Sat by Pulse Oximetry (%) 97 06/18/18 09:00 Intake & Output 06/15/18 06/16/18 06/17/18 06/18/18 23:59 23:59 23:59 23:59 Intake Total 700 908 693 9830 Balance 700 420 240 5599 NAD awake and alert neck supple, no JVD RRR, no M/R CTA, no rales or wheeze soft NT/ND no LE edema no rash on skin no bladder distension no focal neurologic deficits CBC, BMP 06/18/18 06:30 06/18/18 06:30 Current Medications Acetaminophen (Tylenol -) 650 mg PO Q6H PRN PRN Reason: FEVER Last Admin: 06/18/18 08:18 Dose: 650 mg Albuterol/Ipratropium (Duoneb -) 1 amp NEB RQID [facility] Last Admin: 06/18/18 15:50 Dose: 1 amp Amlodipine Besylate (Norvasc -) 10 mg PO DAILY [facility] Last Admin: 06/18/18 09:59 Dose: 10 mg Aspirin (Ecotrin -) 81 mg PO DAILY [facility] Last Admin: 06/18/18 09:59 Dose: 81 mg Calcium Carbonate (Os-Arron 500mg -) 500 mg PO BID [facility] Last Admin: 06/18/18 09:59 Dose: 500 mg Heparin Sodium (Porcine) (Heparin -) 5,000 unit SQ BID [facility] Last Admin: 06/18/18 09:59 Dose: 5,000 unit Sodium Chloride (Normal Saline -) 1,000 mls @ 83 mls/hr IV ASDIR [facility] Last Admin: 06/18/18 10:00 Dose: 83 mls/hr Ceftriaxone Sodium 1 gm/ (Dextrose) 50 mls @ 200 mls/hr IVPB DAILY [facility]; Protocol Last Admin: 06/18/18 09:52 Dose: 200 mls/hr Insulin Aspart (Novolog Vial Sliding Scale -) 1 vial SQ ACHS [facility]; Protocol Last Admin: 06/18/18 11:41 Dose: 8 units Insulin Detemir (Levemir Vial) 55 units SQ DAILY@0700 [facility] Last Admin: 06/18/18 06:55 Dose: 55 units Methylprednisolone Sodium Succinate (Solu-Medrol -) 40 mg IVPUSH Q8H [facility] Multivitamins/Minerals/Vitamin C (Tab-A-Vit -) 1 tab PO DAILY [facility] Last Admin: 06/18/18 09:59 Dose: 1 tab Oseltamivir Phosphate (Tamiflu -) 30 mg PO BID [facility] Stop: 06/19/18 21:59 Last Admin: 06/18/18 09:59 Dose: 30 mg Ranitidine HCl (Zantac -) 150 mg PO DAILY [facility] Last Admin: 06/18/18 09:59 Dose: 150 mg 77 year old woman with hx of hypertension, DM, CAD s/p PCI who presented with complaints of cough and found to have influenza and developed ESTELA during the hospitalization. #ESTELA r/o AIN from Abx vs. normotensive ATN vs. volume depletion in setting of infetion vs. legionella infection #Influenza #Asthma exacerbation #Hypertension #DM #CAD s/p PCI FeUrea is > 35% indicating some tubular damage Renal function is improving thus far will continue IVF hydration with isotonic saline continue steroids and Abx as per primary Bhargav Vences DO
[2018-06-19] MEDS ORDERED: ALBUTEROL SO4 0.083% IH SOL 2.5 MG/3 ML VIAL.NEB. NEB ONE (00:11)
[2018-06-19] MEDS: methylPREDNISolone NA SUCC 40 MG/1 ML VIAL IVPUSH SCH ×3 (02:07→17:53)
[2018-06-19] MEDS: INSULIN SLIDING SCALE (NOVOLOG) 1 VIAL SQ SCH ×4 (06:21→22:22)
[2018-06-19] MEDS: INSULIN (LEVEMIR) 100 UNITS/ML UNITS SQ SCH (06:30)
[2018-06-19] MEDS: ALBUTEROL SO4 2.5/IPRATROPIUM 0.5 INH SOL 3 ML VIAL.NEB. NEB SCH ×4 (08:40→21:05)
[2018-06-19 09:05] LABS: BASO % 0.3 % (0-2.0); HEMATOCRIT 29.1 % (32.4-45.2); LYMPH % 10.2 % (8-40); MCHC 30.9 g/dl (32.0-36.0); MEAN CELL VOLUME 62.9 fl (80-96); MEAN PLT VOLUME 9.9 fl (7.5-11.1); MONO % 7.7 % (3.8-10.2); NEUT % 81.8 % (42.8-82.8); PLATELET COUNT 278 K/MM3 (134-434); RBC 4.62 M/mm3 (3.60-5.2); RDW 19.2 % (11.6-15.6); WHITE BLOOD COUNT 10.4 K/mm3 (4.0-10.0)
[2018-06-19 09:25] LABS: MCH 19.5 pg (25.7-33.7)
--- NOTE | 2018-06-19 09:35 | PN ---
Physical Exam: SUBJECTIVE: Patient seen and examined -BP not well controlled -creatinine back to baseline -breathing is much improved OBJECTIVE: Vital Signs Period Temp Pulse Resp BP Sys/Spence Pulse Ox Last 24 Hr 98.3 F-99.3 F 63-79 20-20 117-178/61-91 GENERAL: The patient is awake, alert, and fully oriented, in no acute distress. HEAD: Normal with no signs of trauma. EYES: PERRL, extraocular movements intact, sclera anicteric, conjunctiva clear. No ptosis. ENT: nares patent, oropharynx clear without exudates, moist mucous membranes. NECK: Trachea midline, full range of motion, supple. LUNGS: + scattered wheezing and roncho b/l lung graves, no accessory muscle use. HEART: Regular rate and rhythm, S1, S2 without murmur, rub or gallop. ABDOMEN: Soft, nontender, nondistended, normoactive bowel sounds, no guarding, no rebound EXTREMITIES: 2+ pulses, warm, well-perfused, no edema. NEUROLOGICAL: Cranial nerves II through XII grossly intact. Normal speech PSYCH: Normal mood, normal affect. SKIN: Warm, dry, normal turgor, no rashes or lesions noted Laboratory Results - last 24 hr 06/17/18 06/18/18 06/18/18 17:06 06:30 06:50 WBC RBC Hgb Hct MCV MCH MCHC RDW Plt Count MPV Absolute Neuts (auto) Neutrophils % Lymphocytes % Monocytes % Eosinophils % Basophils % Nucleated RBC % Hypochromia 2+ Platelet Estimate Normal Polychromasia 1+ Poikilocytosis 1+ Anisocytosis 2+ Microcytosis 2+ Macrocytosis 0 Target Cells 1+ Tear Drop Cells 1+ Helmet Cells 1+ POC Glucometer 237 U Random Total Protein Ur Random Urea Nitrogn 749 Urine Creatinine 06/18/18 06/18/18 06/18/18 06:50 06:50 11:18 WBC RBC Hgb Hct MCV MCH MCHC RDW Plt Count MPV Absolute Neuts (auto) Neutrophils % Lymphocytes % Monocytes % Eosinophils % Basophils % Nucleated RBC % Hypochromia Platelet Estimate Polychromasia Poikilocytosis Anisocytosis Microcytosis Macrocytosis Target Cells Tear Drop Cells Helmet Cells POC Glucometer 262 U Random Total Protein 122.0 H Ur Random Urea Nitrogn Urine Creatinine 66.0 06/18/18 06/18/18 06/19/18 16:27 22:48 06:19 WBC RBC Hgb Hct MCV MCH MCHC RDW Plt Count MPV Absolute Neuts (auto) Neutrophils % Lymphocytes % Monocytes % Eosinophils % Basophils % Nucleated RBC % Hypochromia Platelet Estimate Polychromasia Poikilocytosis Anisocytosis Microcytosis Macrocytosis Target Cells Tear Drop Cells Helmet Cells POC Glucometer 288 248 195 U Random Total Protein Ur Random Urea Nitrogn Urine Creatinine 06/19/18 08:50 WBC 10.4 H RBC 4.62 Hgb 9.0 L Hct 29.1 L MCV 62.9 L MCH 19.5 L MCHC 30.9 L RDW 19.2 H Plt Count 278 MPV 9.9 Absolute Neuts (auto) 8.5 H Neutrophils % 81.8 Lymphocytes % 10.2 D Monocytes % 7.7 Eosinophils % 0.0 Basophils % 0.3 Nucleated RBC % 0 Hypochromia Platelet Estimate Polychromasia Poikilocytosis Anisocytosis Microcytosis Macrocytosis Target Cells Tear Drop Cells Helmet Cells POC Glucometer U Random Total Protein Ur Random Urea Nitrogn Urine Creatinine Active Medications Generic Name Dose Route Start Last Admin Trade Name Freq PRN Reason Stop Dose Admin Acetaminophen 650 mg 06/14/18 19:08 06/18/18 08:18 Tylenol - PO 650 mg Q6H PRN Administration FEVER Albuterol/Ipratropium 1 amp 06/14/18 18:30 06/18/18 21:08 Duoneb - NEB 1 amp RQID [facility] Administration Amlodipine Besylate 10 mg 06/15/18 10:00 06/18/18 09:59 Norvasc - PO 10 mg DAILY [facility] Administration Aspirin 81 mg 06/15/18 10:00 06/18/18 09:59 Ecotrin - PO 81 mg DAILY [facility] Administration Calcium Carbonate 1,000 mg 06/18/18 16:53 06/18/18 22:35 Os-Arron 500mg - PO 1,000 mg BID [facility] Administration Heparin Sodium (Porcine) 5,000 unit 06/16/18 13:45 06/18/18 22:32 Heparin - SQ 5,000 unit BID [facility] Administration Sodium Chloride 1,000 mls @ 83 mls/hr 06/17/18 12:28 06/18/18 17:14 Normal Saline - IV Not Given ASDIR [facility] Ceftriaxone Sodium 1 gm/ 50 mls @ 200 mls/hr 06/17/18 13:15 06/18/18 09:52 Dextrose IVPB 200 mls/hr DAILY [facility] Administration Protocol Insulin Aspart 1 vial 06/17/18 16:30 06/19/18 06:21 Novolog Vial Sliding Scale - SQ 4 units ACHS [facility] Administration Protocol Insulin Detemir 55 units 06/17/18 13:30 06/19/18 06:30 Levemir Vial SQ 55 units DAILY@0700 [facility] Administration Methylprednisolone Sodium Succinate 40 mg 06/18/18 18:00 06/19/18 02:07 Solu-Medrol - IVPUSH 40 mg Q8H [facility] Administration Multivitamins/Minerals/Vitamin C 1 tab 06/17/18 12:00 06/18/18 09:59 Tab-A-Vit - PO 1 tab DAILY [facility] Administration Oseltamivir Phosphate 30 mg 06/14/18 22:00 06/18/18 22:36 Tamiflu - PO 06/19/18 21:59 30 mg BID [facility] Administration Ranitidine HCl 150 mg 06/18/18 10:00 06/18/18 09:59 Zantac - PO 150 mg DAILY [facility] Administration ASSESSMENT/PLAN: 77 year old woman with a history of HTN, CAD with stents, type 2 DM, GERD who presented to the ED with fever, cough, and SOB, found to have sepsis secondary to Flu A infection. 1. Influenza A, possible pneumonia - Tamiflu last dose tonight - ceftriaxone last dose today 06/19 2. Acute resp distress - Continue SoluMedrol, DuoNeb 3. Acute kidney injury - renal following, recs appreciated - Continue to hold Chlorthalidone 4. Type 2 DM - holding home meds: Basaglar, metformin - Continue Levemir, Novolog sliding scale 5. HTN - Continue Norvasc - Chlorthalidone held secondary to ESTELA - restart low dose Cozaar 25mg qpm for better BP control 6. CAD s/p PCI - Continue aspirin 7. GERD - Continue Zantac 8. DVT PPX -heparin SC BID 9. DISPO -Full code -most likely for d/c tomorrow 06/20 Problem List - Problems (1) Influenza A Code(s): J10.1 - FLU DUE TO OTH IDENT INFLUENZA VIRUS W OTH RESP MANIFEST (2) Diabetes mellitus Code(s): E11.9 - TYPE 2 DIABETES MELLITUS WITHOUT COMPLICATIONS (3) Hyperlipidemia Code(s): E78.5 - HYPERLIPIDEMIA, UNSPECIFIED (4) Hypertension Code(s): I10 - ESSENTIAL (PRIMARY) HYPERTENSION Visit type - Emergency Visit Emergency Visit: Yes ED Registration Date: 06/14/18 Care time: The patient presented to the Emergency Department on the above date and was hospitalized for further evaluation of their emergent condition. - New Patient This patient is new to me today: Yes Date on this admission: 06/19/18 - Critical Care Critical Care patient: No - Discharge Referral Referred to [facility] Med [facility] No
[2018-06-19] MEDS ORDERED: PT OWN MED DRAWER 7, Y5N ONE ×2 (09:38→18:52)
[2018-06-19] MEDS ORDERED: cefTRIAXone SODIUM 1 GM VIAL ONE (09:38)
[2018-06-19 09:39] LABS: ANION GAP 9 MMOL/L (8-16); BLOOD UREA NITROGEN 42 mg/dL (7-18); CHLORIDE 116 mmol/L (98-107); CO2 22 mmol/L (21-32); CREATININE 1.6 mg/dL (0.55-1.3); GLUCOSE,RANDOM 239 mg/dL (74-106); PHOSPHOROUS 2.4 mg/dL (2.5-4.9); POTASSIUM 3.5 mmol/L (3.5-5.1); SODIUM 147 mmol/L (136-145)
[2018-06-19] MEDS ORDERED: DEXTROSE 5%-WATER - 50 ML IVPB ONE (09:39)
[2018-06-19] MEDS: CEFTRIAXONE 1 GM in DEXTROSE 5%-WATER - 50 ML IVPB SCH (09:49)
[2018-06-19] MEDS: HEPARIN NA (PORCINE) 5,000 UNITS/ML 1ML VIAL SQ SCH ×2 (09:49→22:22)
[2018-06-19] MEDS: amLODIPine BESYLATE 10 MG TABLET (FP) PO SCH (09:50)
[2018-06-19] MEDS: OSELTAMIVIR PHOSPHATE 30 MG CAPSULE PO SCH (09:50)
[2018-06-19] MEDS: ASPIRIN COATED 81 MG TABLET.EC PO SCH (09:50)
[2018-06-19] MEDS: MULTIVITAMINS (DAILY MVI) TABLET (FP) PO SCH (09:50)
[2018-06-19] MEDS: CALCIUM (OYSTER SHELL) 500 MG TABLET (FP) PO SCH ×2 (09:50→22:22)
[2018-06-19] MEDS: RANITIDINE HCL 150 MG TABLET (FP) PO SCH (09:50)
[2018-06-19 10:18] LABS: CALCIUM 6.7 mg/dL (8.5-10.1)
[2018-06-19] MEDS ORDERED: INSULIN (NOVOLOG) ASPART 100 UNITS/ML 10ML VIAL ONE ×2 (11:00→21:18)
[2018-06-19] MEDS: CALCITRIOL 0.25 MCG CAPSULE (FP) PO SCH (11:36)
[2018-06-19 12:37] LABS: ANISOCYTOSIS 2+; MACROCYTOSIS 1+; OVALOCYTE 1+; PLATELET ESTIMATE NORMAL; TARGET CELLS 1+; TEAR DROP CELLS 1+
--- NOTE | 2018-06-19 12:57 | PN ---
Progress Note (short form) - Note Progress Note: Renal follow up for ESTELA Pt seen and examined at the bedside no acute complaints sob and cough is improved no fevers tolerating oral diet Vital Signs Temperature 99.3 F 06/19/18 08:23 Pulse Rate 63 06/19/18 08:23 Respiratory Rate 20 06/19/18 08:23 Blood Pressure 178/72 H 06/19/18 08:23 O2 Sat by Pulse Oximetry (%) 97 06/19/18 09:00 Intake & Output 06/16/18 06/17/18 06/18/18 06/19/18 23:59 23:59 23:59 23:59 Intake Total 782 246 4217 1150 Balance 794 653 9650 1150 NAD RRR, no M/R CTA, no rales or wheeze soft NT/ND no LE edema CBC, BMP 06/19/18 08:50 06/19/18 08:50 Current Medications Acetaminophen (Tylenol -) 650 mg PO Q6H PRN PRN Reason: FEVER Last Admin: 06/18/18 08:18 Dose: 650 mg Albuterol/Ipratropium (Duoneb -) 1 amp NEB RQID [facility] Last Admin: 06/19/18 11:20 Dose: 1 amp Amlodipine Besylate (Norvasc -) 10 mg PO DAILY [facility] Last Admin: 06/19/18 09:50 Dose: 10 mg Aspirin (Ecotrin -) 81 mg PO DAILY [facility] Last Admin: 06/19/18 09:50 Dose: 81 mg Calcitriol (Rocaltrol -) 0.25 mcg PO DAILY [facility] Last Admin: 06/19/18 11:36 Dose: 0.25 mcg Calcium Carbonate (Os-Arron 500mg -) 1,000 mg PO BID [facility] Last Admin: 06/19/18 09:50 Dose: 1,000 mg Heparin Sodium (Porcine) (Heparin -) 5,000 unit SQ BID [facility] Last Admin: 06/19/18 09:49 Dose: 5,000 unit Ceftriaxone Sodium 1 gm/ (Dextrose) 50 mls @ 200 mls/hr IVPB DAILY [facility]; Protocol Last Admin: 06/19/18 09:49 Dose: 200 mls/hr Insulin Aspart (Novolog Vial Sliding Scale -) 1 vial SQ ACHS [facility]; Protocol Last Admin: 06/19/18 11:05 Dose: 8 units Insulin Detemir (Levemir Vial) 55 units SQ DAILY@0700 [facility] Last Admin: 06/19/18 06:30 Dose: 55 units Methylprednisolone Sodium Succinate (Solu-Medrol -) 40 mg IVPUSH Q8H [facility] Last Admin: 06/19/18 09:49 Dose: 40 mg Multivitamins/Minerals/Vitamin C (Tab-A-Vit -) 1 tab PO DAILY [facility] Last Admin: 06/19/18 09:50 Dose: 1 tab Oseltamivir Phosphate (Tamiflu -) 30 mg PO BID [facility] Stop: 06/19/18 21:59 Last Admin: 06/19/18 09:50 Dose: 30 mg Ranitidine HCl (Zantac -) 150 mg PO DAILY [facility] Last Admin: 06/19/18 09:50 Dose: 150 mg 77 year old woman with hx of hypertension, DM, CAD s/p PCI who presented with complaints of cough and found to have influenza and developed ESTELA during the hospitalization. #ESTELA r/o AIN from Abx vs. normotensive ATN vs. volume depletion in setting of infetion vs. legionella infection #Influenza #Asthma exacerbation #Hypertension #DM #CAD s/p PCI Renal function improved to Cr levels similar to last year volume status appears ok can d/c IVF now can restart diuretics as an outpatient continue abx as per primary team Bhargav Vences DO
--- NOTE | 2018-06-19 12:59 | PN ---
Progress Note, Physician History of Present Illness: doing well breathing better no new issues - Current Medication List Current Medications: Active Medications Acetaminophen (Tylenol -) 650 mg PO Q6H PRN PRN Reason: FEVER Last Admin: 06/18/18 08:18 Dose: 650 mg Albuterol/Ipratropium (Duoneb -) 1 amp NEB RQID [facility] Last Admin: 06/19/18 11:20 Dose: 1 amp Amlodipine Besylate (Norvasc -) 10 mg PO DAILY [facility] Last Admin: 06/19/18 09:50 Dose: 10 mg Aspirin (Ecotrin -) 81 mg PO DAILY [facility] Last Admin: 06/19/18 09:50 Dose: 81 mg Calcitriol (Rocaltrol -) 0.25 mcg PO DAILY [facility] Last Admin: 06/19/18 11:36 Dose: 0.25 mcg Calcium Carbonate (Os-Arron 500mg -) 1,000 mg PO BID [facility] Last Admin: 06/19/18 09:50 Dose: 1,000 mg Heparin Sodium (Porcine) (Heparin -) 5,000 unit SQ BID [facility] Last Admin: 06/19/18 09:49 Dose: 5,000 unit Ceftriaxone Sodium 1 gm/ (Dextrose) 50 mls @ 200 mls/hr IVPB DAILY [facility]; Protocol Last Admin: 06/19/18 09:49 Dose: 200 mls/hr Insulin Aspart (Novolog Vial Sliding Scale -) 1 vial SQ ACHS [facility]; Protocol Last Admin: 06/19/18 11:05 Dose: 8 units Insulin Detemir (Levemir Vial) 55 units SQ DAILY@0700 [facility] Last Admin: 06/19/18 06:30 Dose: 55 units Methylprednisolone Sodium Succinate (Solu-Medrol -) 40 mg IVPUSH Q8H [facility] Last Admin: 06/19/18 09:49 Dose: 40 mg Multivitamins/Minerals/Vitamin C (Tab-A-Vit -) 1 tab PO DAILY [facility] Last Admin: 06/19/18 09:50 Dose: 1 tab Oseltamivir Phosphate (Tamiflu -) 30 mg PO BID [facility] Stop: 06/19/18 21:59 Last Admin: 06/19/18 09:50 Dose: 30 mg Ranitidine HCl (Zantac -) 150 mg PO DAILY [facility] Last Admin: 06/19/18 09:50 Dose: 150 mg - Objective Vital Signs: Vital Signs Temperature 99.3 F 04/10/19 08:23 Pulse Rate 63 06/19/18 08:23 Respiratory Rate 20 06/19/18 08:23 Blood Pressure 178/72 H 06/19/18 08:23 O2 Sat by Pulse Oximetry (%) 97 06/19/18 09:00 Constitutional: Yes: No Distress, Calm Cardiovascular: Yes: Regular Rate and Rhythm Respiratory: Yes: Regular, Rhonchi Gastrointestinal: Yes: Normal Bowel Sounds, Soft Musculoskeletal: Yes: WNL Extremities: Yes: WNL Neurological: Yes: Alert, Oriented Psychiatric: Yes: Alert, Oriented Labs: CBC, BMP 06/19/18 08:50 06/19/18 08:50 Assessment/Plan 77 year old female, with a significant PMH of diabetes mellitus, CAD s/p 5 stents, GERD and hypertension this patient with multiple medical problems r/o pneumonia r/o chf influenza weakness plan we will d/c abx after todays dose incentive meet rest as per the team nutrition
[2018-06-19] MEDS ORDERED: CALCIUM GLUCONATE 10% - 1,000 MG/10 ML VIAL IVPB ONE ×4 (15:37→20:00)
--- NOTE | 2018-06-19 16:23 | PN ---
Progress Note, Physician History of Present Illness: PULMONARY ALERT,FEELING BETTER,-SOB,LESS COUGH - Current Medication List Current Medications: Active Medications Acetaminophen (Tylenol -) 650 mg PO Q6H PRN PRN Reason: FEVER Last Admin: 06/18/18 08:18 Dose: 650 mg Albuterol/Ipratropium (Duoneb -) 1 amp NEB RQID [facility] Last Admin: 06/19/18 11:20 Dose: 1 amp Amlodipine Besylate (Norvasc -) 10 mg PO DAILY [facility] Last Admin: 06/19/18 09:50 Dose: 10 mg Aspirin (Ecotrin -) 81 mg PO DAILY [facility] Last Admin: 06/19/18 09:50 Dose: 81 mg Calcitriol (Rocaltrol -) 0.25 mcg PO DAILY [facility] Last Admin: 06/19/18 11:36 Dose: 0.25 mcg Calcium Carbonate (Os-Arron 500mg -) 1,000 mg PO BID [facility] Last Admin: 06/19/18 09:50 Dose: 1,000 mg Calcium Gluconate (Calcium Gluconate 10% -) 1,000 mg IVPB ONCE ONE Stop: 06/19/18 15:38 Calcium Gluconate (Calcium Gluconate 10% -) 1,000 mg IVPB ONCE ONE Stop: 06/19/18 18:01 Heparin Sodium (Porcine) (Heparin -) 5,000 unit SQ BID [facility] Last Admin: 06/19/18 09:49 Dose: 5,000 unit Ceftriaxone Sodium 1 gm/ (Dextrose) 50 mls @ 200 mls/hr IVPB DAILY [facility]; Protocol Last Admin: 06/19/18 09:49 Dose: 200 mls/hr Insulin Aspart (Novolog Vial Sliding Scale -) 1 vial SQ ACHS [facility]; Protocol Last Admin: 06/19/18 11:05 Dose: 8 units Insulin Detemir (Levemir Vial) 55 units SQ DAILY@0700 [facility] Last Admin: 06/19/18 06:30 Dose: 55 units Losartan Potassium (Cozaar -) 50 mg PO DAILY [facility] Methylprednisolone Sodium Succinate (Solu-Medrol -) 40 mg IVPUSH Q8H [facility] Last Admin: 06/19/18 09:49 Dose: 40 mg Multivitamins/Minerals/Vitamin C (Tab-A-Vit -) 1 tab PO DAILY [facility] Last Admin: 06/19/18 09:50 Dose: 1 tab Oseltamivir Phosphate (Tamiflu -) 30 mg PO BID [facility] Stop: 06/19/18 21:59 Last Admin: 06/19/18 09:50 Dose: 30 mg Ranitidine HCl (Zantac -) 150 mg PO DAILY [facility] Last Admin: 06/19/18 09:50 Dose: 150 mg - Objective Vital Signs: Vital Signs Temperature 99.3 F 06/19/18 08:23 Pulse Rate 63 06/19/18 08:23 Respiratory Rate 20 06/19/18 08:23 Blood Pressure 178/72 H 06/19/18 08:23 O2 Sat by Pulse Oximetry (%) 97 06/19/18 09:00 Constitutional: Yes: Well Nourished, Calm Eyes: Yes: WNL HENT: Yes: WNL Neck: Yes: WNL Cardiovascular: Yes: Regular Rate and Rhythm, S1, S2 Respiratory: Yes: Rhonchi (FEW RHONCHI) Gastrointestinal: Yes: Normal Bowel Sounds, Soft Extremities: Yes: WNL Edema: No Labs: CBC, BMP 06/19/18 08:50 06/19/18 08:50 Problem List - Problems (1) Influenza A Code(s): J10.1 - FLU DUE TO OTH IDENT INFLUENZA VIRUS W OTH RESP MANIFEST (2) Coronary artery disease Code(s): I25.10 - ATHSCL HEART DISEASE OF [place] CORONARY ARTERY W/O ANG PCTRS (3) Diabetes mellitus Code(s): E11.9 - TYPE 2 DIABETES MELLITUS WITHOUT COMPLICATIONS (4) Hypoxia Code(s): R09.02 - HYPOXEMIA (5) Respiratory distress Code(s): R06.00 - DYSPNEA, UNSPECIFIED (6) Wheezing Code(s): R06.2 - WHEEZING (7) ARF (acute renal failure) Code(s): N17.9 - ACUTE KIDNEY FAILURE, UNSPECIFIED (8) Asthmatic bronchitis Code(s): J45.909 - UNSPECIFIED ASTHMA, UNCOMPLICATED Assessment/Plan IMP ASTHMATIC BRONCHITIS IMPROVING INFLUENZA A ASHD S/P STENT X5 DM ACUTE ON CHRONIC KIDNEY DISEASE PLAN TAPER STEROIDS INHALED BRONCHODILATORS O2 TAMIFLU ANTI-TUSSIVES MONITOR LYTES,RENAL FUNCTION DR LUI Problem List - Problems (1) Influenza A Code(s): J10.1 - FLU DUE TO OTH IDENT INFLUENZA VIRUS W OTH RESP MANIFEST (2) Coronary artery disease Code(s): I25.10 - ATHSCL HEART DISEASE OF [place] CORONARY ARTERY W/O ANG PCTRS (3) Diabetes mellitus Code(s): E11.9 - TYPE 2 DIABETES MELLITUS WITHOUT COMPLICATIONS (4) Hypoxia Code(s): R09.02 - HYPOXEMIA (5) Respiratory distress Code(s): R06.00 - DYSPNEA, UNSPECIFIED (6) Wheezing Code(s): R06.2 - WHEEZING (7) ARF (acute renal failure) Code(s): N17.9 - ACUTE KIDNEY FAILURE, UNSPECIFIED (8) Asthmatic bronchitis Code(s): J45.909 - UNSPECIFIED ASTHMA, UNCOMPLICATED
[2018-06-19] MEDS: SODIUM CHLORIDE 1,000 ML IV SCH (17:50)
[2018-06-19] MEDS: LOSARTAN POTASSIUM 50 MG TABLET (FP) PO SCH (17:52)
[2018-06-20] MEDS: methylPREDNISolone NA SUCC 40 MG/1 ML VIAL IVPUSH SCH ×2 (02:06→10:46)
[2018-06-20] MEDS: INSULIN SLIDING SCALE (NOVOLOG) 1 VIAL SQ SCH ×2 (06:14→11:55)
[2018-06-20] MEDS: INSULIN (LEVEMIR) 100 UNITS/ML UNITS SQ SCH (06:14)
[2018-06-20 07:11] LABS: BASO % 0.3 % (0-2.0); EOS % 0.5 % (0-4.5); HEMOGLOBIN 9.3 GM/dL (10.7-15.3); LYMPH % 12.9 % (8-40); MEAN CELL VOLUME 62.8 fl (80-96); MEAN PLT VOLUME 9.6 fl (7.5-11.1); NEUT % 81.3 % (42.8-82.8); PLATELET COUNT 304 K/MM3 (134-434); RBC 4.77 M/mm3 (3.60-5.2); RDW 19.1 % (11.6-15.6); WHITE BLOOD COUNT 12.7 K/mm3 (4.0-10.0)
[2018-06-20] MEDS: ALBUTEROL SO4 2.5/IPRATROPIUM 0.5 INH SOL 3 ML VIAL.NEB. NEB SCH ×2 (07:32→11:07)
[2018-06-20 07:37] LABS: ALBUMIN 2.6 g/dl (3.4-5.0); ALK PHOS 53 U/L (45-117); ANION GAP 12 MMOL/L (8-16); BILIRUBIN,TOTAL 0.3 mg/dL (0.2-1); BLOOD UREA NITROGEN 32 mg/dL (7-18); CALCIUM 8.2 mg/dL (8.5-10.1); CHLORIDE 113 mmol/L (98-107); CO2 22 mmol/L (21-32); CREATININE 1.4 mg/dL (0.55-1.3); GLUCOSE,RANDOM 244 mg/dL (74-106); MAGNESIUM 2.5 mg/dL (1.8-2.4); POTASSIUM 3.5 mmol/L (3.5-5.1); SGOT/AST 53 U/L (15-37); SGPT/ALT 52 U/L (13-61); SODIUM 146 mmol/L (136-145); TOT PROT 6.4 g/dl (6.4-8.2)
[2018-06-20 07:56] LABS: MCH 19.4 pg (25.7-33.7)
[2018-06-20] MEDS ORDERED: POTASSIUM CHLORIDE TABS 20 MEQ TABLET.ER (FP) PO ONE (09:15)
[2018-06-20 09:30] VITALS: BP 166/68; PULSE 79; TEMP 98.6
[2018-06-20] MEDS ORDERED: DEXTROSE 5%-WATER - 50 ML IVPB ONE (10:29)
[2018-06-20] MEDS ORDERED: PT OWN MED DRAWER 7, Y5N ONE (10:29)
[2018-06-20] MEDS ORDERED: cefTRIAXone SODIUM 1 GM VIAL ONE (10:29)
--- NOTE | 2018-06-20 10:35 | PN ---
Progress Note (short form) - Note Progress Note: PULMONARY Denies shortness of breath. Cough improving. No fevers. Vital Signs Period Temp Pulse Resp BP Sys/Spence Pulse Ox Last 24 Hr 98.3 F-99.2 F 67-80 20-20 160-182/68-86 96-99 Gen: NAD in chair Heart: RRR Lung: less rhonchi, wheezes Abd: soft, nontender Ext: no edema CBC, BMP 06/20/18 06:40 06/20/18 06:40 Active Medications Acetaminophen (Tylenol -) 650 mg PO Q6H PRN PRN Reason: FEVER Last Admin: 06/18/18 08:18 Dose: 650 mg Albuterol/Ipratropium (Duoneb -) 1 amp NEB RQID [facility] Last Admin: 06/20/18 07:32 Dose: 1 amp Amlodipine Besylate (Norvasc -) 10 mg PO DAILY [facility] Last Admin: 06/19/18 09:50 Dose: 10 mg Aspirin (Ecotrin -) 81 mg PO DAILY [facility] Last Admin: 06/19/18 09:50 Dose: 81 mg Calcitriol (Rocaltrol -) 0.25 mcg PO DAILY [facility] Last Admin: 06/19/18 11:36 Dose: 0.25 mcg Calcium Carbonate (Os-Arron 500mg -) 1,000 mg PO BID [facility] Last Admin: 06/19/18 22:22 Dose: 1,000 mg Heparin Sodium (Porcine) (Heparin -) 5,000 unit SQ BID [facility] Last Admin: 06/19/18 22:22 Dose: 5,000 unit Ceftriaxone Sodium 1 gm/ (Dextrose) 50 mls @ 200 mls/hr IVPB DAILY [facility]; Protocol Last Admin: 06/19/18 09:49 Dose: 200 mls/hr Insulin Aspart (Novolog Vial Sliding Scale -) 1 vial SQ ACHS [facility]; Protocol Last Admin: 06/20/18 06:14 Dose: 6 units Insulin Detemir (Levemir Vial) 55 units SQ DAILY@0700 [facility] Last Admin: 06/20/18 06:14 Dose: 55 units Losartan Potassium (Cozaar -) 50 mg PO DAILY [facility] Last Admin: 06/19/18 17:52 Dose: 50 mg Methylprednisolone Sodium Succinate (Solu-Medrol -) 40 mg IVPUSH Q8H [facility] Last Admin: 06/20/18 02:06 Dose: 40 mg Multivitamins/Minerals/Vitamin C (Tab-A-Vit -) 1 tab PO DAILY [facility] Last Admin: 06/19/18 09:50 Dose: 1 tab Ranitidine HCl (Zantac -) 150 mg PO DAILY [facility] Last Admin: 06/19/18 09:50 Dose: 150 mg A/P Influenza A Acute Asthma Exacerbation CAD Acute on Chronic Renal Failure DM - completed tamiflu - can change steroids to PO prednisone 40mg daily and taper as outpt - inhaled bronchodilators - O2 to keep SpO2 >90% - monitor urine output, creatinine - DVT prophylaxis - can be discharged home from pulmonary standpoint
[2018-06-20] MEDS: HEPARIN NA (PORCINE) 5,000 UNITS/ML 1ML VIAL SQ SCH (10:47)
[2018-06-20] MEDS: CALCITRIOL 0.25 MCG CAPSULE (FP) PO SCH (10:49)
[2018-06-20] MEDS: MULTIVITAMINS (DAILY MVI) TABLET (FP) PO SCH (10:49)
[2018-06-20] MEDS: CALCIUM (OYSTER SHELL) 500 MG TABLET (FP) PO SCH (10:49)
[2018-06-20] MEDS: amLODIPine BESYLATE 10 MG TABLET (FP) PO SCH (10:49)
[2018-06-20] MEDS: RANITIDINE HCL 150 MG TABLET (FP) PO SCH (10:49)
[2018-06-20] MEDS: ASPIRIN COATED 81 MG TABLET.EC PO SCH (10:49)
[2018-06-20] MEDS: LOSARTAN POTASSIUM 50 MG TABLET (FP) PO SCH (10:49)
[2018-06-20] MEDS: CEFTRIAXONE 1 GM in DEXTROSE 5%-WATER - 50 ML IVPB SCH (10:51)
[2018-06-20 11:00] LABS: ANISOCYTOSIS 1+; MACROCYTOSIS 0; OVALOCYTE 1+; PLATELET ESTIMATE NORMAL
--- NOTE | 2018-06-20 14:49 | DS ---
Physical Examination Vital Signs: Vital Signs Temperature 98.6 F 06/20/18 09:29 Pulse Rate 79 06/20/18 09:29 Respiratory Rate 20 06/20/18 09:29 Blood Pressure 166/68 06/20/18 09:29 O2 Sat by Pulse Oximetry (%) 96 06/20/18 09:00 Constitutional: Yes: Well Nourished, No Distress Labs: CBC, BMP 06/20/18 06:40 06/20/18 06:40 Discharge Summary Reason For Visit: INFLUENZA DUE TO INFLUENZA VIRUS TYPE A,PNEUMONIA Current Active Problems Asthmatic bronchitis (Acute) Influenza A (Acute) Pneumonia (Acute) Procedures: Principal: CT chest 06/15/2018. IMPRESSION: Mild centrilobular emphysema again seen in the right upper lobe. Minimal atelectatic changes and bronchiectatic changes in the lower lobes without gross evidence of focal infiltrates, pneumothorax. or pleural effusion. Cardiomegaly and minimal pericardial effusion. Calcification of the coronary arteries are present. No enlarged mediastinal or hilar lymph nodes are identified. Punctate nonobstructing right renal upper pole stone. Reported By: Maycol Echols MD. [id number]. Other Procedures: Renal sono 06/15/2018. IMPRESSION: Right renal simple cyst measuring 1.6 cm and possibly a nonobstructing stone measuring 6 mm. There is no evidence of hydronephrosis or gross solid mass lesion in both kidneys. Reported By: Maycol Echols MD. CXR 06/15/2018. Impression : No sign of infiltrate. Large heart. Reported By: Alex Terrazas MD 06/15/18 0908 06/15/18 1210 Hospital Course: 77 year old female, with a significant PMH of diabetes mellitus, CAD s/p 5 stents, GERD and hypertension. She presents to the ED today with 3 days of congestion, productive cough, green sputum and fever and chills at home. She is retired and does not work in a hospital setting. She endorses sore throat and chills. Also having trouble laying flat at night. She is also having dyspnea with any physical exertion. In the ED she was swabbed for the flu and is now positive. Initially she was thought to have pneumonia, but chest xray does not support this diagnosis, however, she has scattered rhonchi, wheezing with accessory muscle use. In the ED she received Zosyn and Vancomycin. Since she is having high fevers, will send for blood cultures and start on empiric antibiotics. She will need to be monitored inpatient for flu complications as she is over 65 years, a diabetic and has advanced heart disease. Will monitor overnight and re evaluate in a.m. Will repeat xray in a.m. No history of asthma, COPD or smoking. ER course was notable for: (1) meets sepsis criteria on admission: wbc 12.2, fever 102.7, ESTELA, short of breath, source of fever likely flu. chest xray does not support diagnosis of pneumonia, likely bronchitis vs. complications of the flu (2) no lactic acidosis. Pt was admitted for asthmatic bronchitis secondary to Influenza A infection and PNA. She was treated with IV solumedrol, duonebs Tamiflu and ceftriaxone. Pt completed therapy and has made significant improvement in her resp status. Additionally, pt suffered acute on chronic renal injury due to dehydration, which was treated with IVF and holding ARB and diuretic. Her serum creatinine declined from 2.8 to 1.4. Condition: Improved - Instructions Diet, Activity, Other Instructions: Pt instructed to follow up with PCP ? People who are at risk of getting a severe flu illness include: ? People over 50 years of age (a higher strength version of the vaccine is recommended for people 65 years and older) ? women and those planning during the flu season ? Young children ? Caregivers of infants less than 6 months ? Adults and children with the following: ? Chronic lung disease (including emphysema, COPD and asthma) ? Chronic heart disease (except high blood pressure) ? Chronic metabolic diseases (including diabetes) ? Kidney disease ? Hepatic (liver) disease ? Blood disorders (including sickle cell anemia) ? Those with weakened immune systems such as those with HIV/AIDS or those who have low immunity from chronic steroids, chemotherapy or radiation therapy ? Children and teenagers who take daily aspirin therapy ? Caregivers who live with or care for those at high risk for serious complications from the flu ? People who are very obese with body mass index of 40 or higher ? Most healthcare providers are required to get the flu vaccine Note: this list only provides examples of conditions for which the flu vaccine is recommended. Your healthcare provider may want you to have a flu shot for other conditions. What can I do to prevent the flu? ? Getting a yearly influenza (flu) vaccine is still the best way to protect you and your family from influenza. ? Wash your hands often and well. Use soap and water or an alcohol-based hand cutch cleaner. ? Avoid being near people who are sick. ? Eat a healthy diet. ? Keep good control of medical problems, such as asthma. ? Dont smoke and avoid being around any tobacco smoke. ? Cover your nose and mouth with a tissue when you sneeze or cough, and throw away the tissue afterward Disposition: HOME - Home Medications Comprehensive Discharge Medication List: Ambulatory Orders Acetaminophen [Tylenol] 2 cap PO TID PRN 06/20/18 Albuterol Sulfate Inhaler - [Ventolin HFA Inhaler -] 2 inh PO Q4H 30 Days #1 inh 06/20/18 Alendronate Sodium/Vitamin D3 [Fosamax Plus D 70 mg-5,600 Iu vIT d] 1 tab PO WEEKLY 06/20/18 Amlodipine Besylate [Norvasc -] 10 mg PO DAILY 06/20/18 Aspirin [Aspirin EC] 1 tab PO DAILY 06/20/18 Calcium Carbonate/Vitamin D3 [Calcium 600-Vit D3 400 Tablet] 1 tab PO DAILY 01/28 Carvedilol [Coreg -] 25 mg PO BID 06/20/18 Chlorthalidone 1 tab PO DAILY 06/20/18 Dextran 70/Hypromellose [Artificial Tears Eye Drops] 1 drop OU BID 06/20/18 Insulin Aspart [Novolog] 6 units SCJ BID 06/20/18 Insulin Glargine,Hum.rec.anlog [Basaglar Kwikpen U-100] 55 unit SCJ HS 06/20/18 Losartan Potassium [Cozaar] 100 mg PO DAILY 06/20/18 Omeprazole 2 cap PO DAILY 06/20/18 Prednisone See Taper PO DAILY 6 Days #17 tablet 06/20/18 Pregabalin [Lyrica] 1 cap PO DAILY 06/20/18 Rosuvastatin Calcium [Crestor] 1 tab PO DAILY 06/20/18 metFORMIN HCL [Metformin HCl] 1 tab PO BID 06/20/18 This patient is new to me today: No Emergency Visit: Yes ED Registration Date: 06/14/18 Care time: The patient presented to the Emergency Department on the above date and was hospitalized for further evaluation of their emergent condition. Critical Care patient: No - Discharge Referral Referred to [facility] Med P.C.: No
--- NOTE | 2018-06-20 15:05 | PN ---
Progress Note (short form) - Note Progress Note: Renal follow up for ESTELA Pt seen and examined at the bedside no acute complaints feels much better tolerating oral diet making urine Vital Signs Temperature 98.6 F 06/20/18 09:29 Pulse Rate 79 06/20/18 09:29 Respiratory Rate 20 06/20/18 09:29 Blood Pressure 166/68 06/20/18 09:29 O2 Sat by Pulse Oximetry (%) 96 06/20/18 09:00 Intake & Output 06/17/18 06/18/18 06/19/18 06/20/18 23:59 23:59 23:59 23:59 Intake Total 450 2492 2830 400 Balance 450 2492 2830 400 NAD RRR, no M/R CTA, no rales or wheeze soft NT/ND no LE edema CBC, BMP 06/20/18 06:40 06/20/18 06:40 Current Medications Acetaminophen (Tylenol -) 650 mg PO Q6H PRN PRN Reason: FEVER Last Admin: 06/18/18 08:18 Dose: 650 mg Albuterol/Ipratropium (Duoneb -) 1 amp NEB RQID [facility] Last Admin: 06/20/18 11:07 Dose: 1 amp Amlodipine Besylate (Norvasc -) 10 mg PO DAILY [facility] Last Admin: 06/20/18 10:49 Dose: 10 mg Aspirin (Ecotrin -) 81 mg PO DAILY [facility] Last Admin: 06/20/18 10:49 Dose: 81 mg Calcitriol (Rocaltrol -) 0.25 mcg PO DAILY [facility] Last Admin: 06/20/18 10:49 Dose: 0.25 mcg Calcium Carbonate (Os-Arron 500mg -) 1,000 mg PO BID [facility] Last Admin: 06/20/18 10:49 Dose: 1,000 mg Heparin Sodium (Porcine) (Heparin -) 5,000 unit SQ BID [facility] Last Admin: 06/20/18 10:47 Dose: 5,000 unit Insulin Aspart (Novolog Vial Sliding Scale -) 1 vial SQ ACHS [facility]; Protocol Last Admin: 06/20/18 11:55 Dose: 10 units Insulin Detemir (Levemir Vial) 55 units SQ DAILY@0700 [facility] Last Admin: 06/20/18 06:14 Dose: 55 units Losartan Potassium (Cozaar -) 50 mg PO DAILY [facility] Last Admin: 06/20/18 10:49 Dose: 50 mg Multivitamins/Minerals/Vitamin C (Tab-A-Vit -) 1 tab PO DAILY [facility] Last Admin: 06/20/18 10:49 Dose: 1 tab Prednisone (Deltasone -) 40 mg PO DAILY [facility] Ranitidine HCl (Zantac -) 150 mg PO DAILY [facility] Last Admin: 06/20/18 10:49 Dose: 150 mg 77 year old woman with hx of hypertension, DM, CAD s/p PCI who presented with complaints of cough and found to have influenza and developed ESTLEA during the hospitalization. #ESTELA r/o AIN from Abx vs. normotensive ATN vs. volume depletion in setting of infetion vs. legionella infection #Influenza #Asthma exacerbation #Hypertension #DM #CAD s/p PCI Renal function improved and stable ok for discharge should follow up with PMD as outpatient and have repeat labs Bhargav Vences DO
--- NOTE | 2018-06-20 15:29 | PN ---
Progress Note, Physician History of Present Illness: patient stable no new issues breathing much better - Current Medication List Current Medications: Active Medications Acetaminophen (Tylenol -) 650 mg PO Q6H PRN PRN Reason: FEVER Last Admin: 06/18/18 08:18 Dose: 650 mg Albuterol/Ipratropium (Duoneb -) 1 amp NEB RQID [facility] Last Admin: 06/20/18 11:07 Dose: 1 amp Amlodipine Besylate (Norvasc -) 10 mg PO DAILY [facility] Last Admin: 06/20/18 10:49 Dose: 10 mg Aspirin (Ecotrin -) 81 mg PO DAILY [facility] Last Admin: 06/20/18 10:49 Dose: 81 mg Calcitriol (Rocaltrol -) 0.25 mcg PO DAILY [facility] Last Admin: 06/20/18 10:49 Dose: 0.25 mcg Calcium Carbonate (Os-Arron 500mg -) 1,000 mg PO BID [facility] Last Admin: 06/20/18 10:49 Dose: 1,000 mg Heparin Sodium (Porcine) (Heparin -) 5,000 unit SQ BID [facility] Last Admin: 06/20/18 10:47 Dose: 5,000 unit Insulin Aspart (Novolog Vial Sliding Scale -) 1 vial SQ ACHS [facility]; Protocol Last Admin: 06/20/18 11:55 Dose: 10 units Insulin Detemir (Levemir Vial) 55 units SQ DAILY@0700 [facility] Last Admin: 06/20/18 06:14 Dose: 55 units Losartan Potassium (Cozaar -) 50 mg PO DAILY [facility] Last Admin: 06/20/18 10:49 Dose: 50 mg Multivitamins/Minerals/Vitamin C (Tab-A-Vit -) 1 tab PO DAILY [facility] Last Admin: 06/20/18 10:49 Dose: 1 tab Prednisone (Deltasone -) 40 mg PO DAILY [facility] Ranitidine HCl (Zantac -) 150 mg PO DAILY [facility] Last Admin: 06/20/18 10:49 Dose: 150 mg - Objective Vital Signs: Vital Signs Temperature 98.6 F 06/20/18 09:29 Pulse Rate 79 06/20/18 09:29 Respiratory Rate 20 06/20/18 09:29 Blood Pressure 166/68 06/20/18 09:29 O2 Sat by Pulse Oximetry (%) 96 06/20/18 09:00 Constitutional: Yes: No Distress, Calm Cardiovascular: Yes: Regular Rate and Rhythm Respiratory: Yes: Regular, CTA Bilaterally Gastrointestinal: Yes: Normal Bowel Sounds, Soft Musculoskeletal: Yes: WNL Extremities: Yes: WNL Neurological: Yes: Alert, Oriented Psychiatric: Yes: Alert, Oriented Labs: CBC, BMP 06/20/18 06:40 06/20/18 06:40 Assessment/Plan 77 year old female, with a significant PMH of diabetes mellitus, CAD s/p 5 stents, GERD and hypertension this patient with multiple medical problems r/o pneumonia r/o chf influenza 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
[2018-06-21] MEDS ORDERED: predniSONE 20 MG TABLET (UD) PO SCH (10:00)
== END 2018-06-20 15:43 | disposition home or self-care (01) | DRG 871 ==
LOC: JER 12:50 → JERBED 16:34 → J6S 18:23
PROVIDERS: ADMIT Internal Medicine; ATTEND Nurse Practitioner Family
DX: A41.9 Sepsis, unspecified organism (principal); J11.00 Influenza due to unidentified influenza virus with unspecified type of pneumonia; J96.00 Acute respiratory failure, unspecified whether with hypoxia or hypercapnia; N17.0 Acute kidney failure with tubular necrosis; N17.9 Acute kidney failure, unspecified; J45.901 Unspecified asthma with (acute) exacerbation; I25.10 Atherosclerotic heart disease of native coronary artery without angina pectoris; Z79.84 Long term (current) use of oral hypoglycemic drugs; Z98.61 Coronary angioplasty status; E66.9 Obesity, unspecified; K21.9 Gastro-esophageal reflux disease without esophagitis; Z68.34 Body mass index [BMI] 34.0-34.9, adult; E11.22 Type 2 diabetes mellitus with diabetic chronic kidney disease; I12.9 Hypertensive chronic kidney disease with stage 1 through stage 4 chronic kidney disease, or unspecified chronic kidney disease; N18.9 Chronic kidney disease, unspecified
CPT/HCPCS: 36415; 71045-TC-FY; 71046-TC-FY; 71250-TC; 76775-TC; 80048; 80053; 82272; 82570; 82607; 82728; 82746; 82962; 83036; 83540; 83550; 83605; 83735; 84100; 84156; 84311; 84540; 85025; 85027; 87040; 87205; 87804; 93005; 93010; 93306-TC; 94640; 97116-GP; 99284-25; J1644; J1756; J7030